=== PATIENT | male | born 1950 | race Caucasian/White ===

== ENCOUNTER 2016-11-14 22:31 | Inpatient (IN) ==
[2016-11-14] MEDS ORDERED: 0.9 % Sodium Chloride 1,000 ML ONE (22:42)
[2016-11-14] MEDS ORDERED: 0.9 % Sodium Chloride 1,000 ML IVC ONE ×2 (22:54→23:47)
[2016-11-14 23:04] LABS: Basophils % 0.2 %; Eosinophils # 0.1 K/mcL (0.0-0.6); Eosinophils % 1.1 %; Hematocrit 30.6 % (37.5-50.1); Hemoglobin 10.2 g/dL (12.9-16.9); Immature Granulocytes % 0.6 % (0-4); Lymphocytes # 1.8 K/mcL (0.6-4.6); Lymphocytes % 13.6 %; Mean Corpuscular HGB Conc 33.3 g/dL (31.6-35.5); Mean Corpuscular Hemoglobin 31.1 pg (28.0-33.3); Mean Corpuscular Volume 93.3 fL (83.0-100.0); Monocytes # 0.8 K/mcL (0.0-1.3); Monocytes % 6.3 %; Neutrophils # 10.1 K/mcL (1.6-8.9); Platelet Count 235 K/mcL (140-400); Red Blood Count 3.28 M/mcL (4.19-5.50); Segmented Neutrophils % 78.2 %
[2016-11-14 23:20] LABS: Alanine Aminotransferase 13 Units/L (0-55); Albumin 2.9 g/dL (3.5-5.0); Albumin/Globulin Ratio 1.2 (1.1-2.2); Alkaline Phosphatase 45 Units/L (38-126); Aspartate Amino Transferase 8 Units/L (5-34); BUN/Creatinine Ratio 82 (6-26); Bilirubin,Total 0.8 mg/dL (0.2-1.2); Blood Urea Nitrogen 89 mg/dL (8-26); Calcium 8.3 mg/dL (8.6-10.8); Carbon Dioxide 18 mEq/L (19-29); Chloride 112 mEq/L (98-109); Globulin 2.4 g/dL (2.4-3.5); Glucose 104 mg/dL (70-99); Osmolality,Calculated 320 (280-300); Potassium 4.2 mEq/L (3.5-4.5); Sodium 141 mEq/L (136-145); Total Protein 5.3 g/dL (6.0-8.3); eGFR For African Americans > 60 (> 60); eGFR For Non-African Americans > 60 (> 60)
[2016-11-14 23:23] LABS: INR 1.3; Prothrombin Time 13.7 Seconds (9.4-12.1)
[2016-11-14 23:25] LABS: Activated Partial Thrombo Time 23.1 Seconds (26.0-36.0)
--- NOTE | 2016-11-15 00:14 | Emergency Department Note ---
Disposition Clinical Impression: Dehydration Disposition: Admitted As Inpatient Referrals: Lydia Slater CNP [Primary Care Provider] - Forms: ED Satisfaction Letter Dizziness HPI - General Chief Complaint: ED Dizziness Stated Complaint: Dizzy Time Seen by Provider: 11/14/16 22:52 Source: patient Nursing Notes Reviewed: Yes Vital Signs Reviewed: Yes - History of Present Illness HPI Narrative: Patient presents for complaint of feeling ill dizziness started earlier today. Patient denies chest pain or shortness of breath associated with this. Patient denies any vision changes associated with this. Patient noted he started to feel hot and sweaty [employer] garage. Patient denies numbness and tinglin chills. patient - Related Data Home Medications Medication Instructions Recorded Confirmed Amlodipine Besylate 5 mg PO ONCE 11/15/16 11/15/16 Aspirin [Lo-Dose Aspirin EC] 81 mg PO ONCE 11/15/16 11/15/16 Clopidogrel [Plavix] 75 mg PO DAILY 11/15/16 11/15/16 Loratadine [Allergy Relief] 10 mg PO ONCE 11/15/16 11/15/16 Metoprolol [Lopressor] 25 mg PO BID 11/15/16 11/15/16 Nitroglycerin [Nitrostat] 0.4 mg SL PRN 11/15/16 Simvastatin [Zocor] 80 mg PO ONCE 11/15/16 11/15/16 Previous Rx's Medication Instructions Recorded Tamsulosin HCl [Flomax] 0.4 mg PO DAILY #14 cap.er.24h 11/05/16 Allergies Allergy/AdvReac Type Severity Reaction Status Date / Time No Known Allergies Allergy Verified 11/14/16 22:32 All systems ED: reviewed and negative except as stated. Past Medical History - Past Medical History Source: patient Medical history: Reports: hypertension, myocardial infarction Psychiatric history: Reports: no psych history - Social History Smoking Status: Never smoker Smokeless Tobacco Status: No Alcohol use: Reports: none Drug use: Reports: none Physical Exam - General Limitations: no limitations General appearance: alert, in no apparent distress - Head Head exam: atraumatic, normocephalic, normal inspection - Eye Eye exam: Present: normal appearance, PERRL, EOMI - ENT ENT exam: normal exam, normal oropharynx, mucous membranes moist - Neck Neck exam: Present: normal inspection, full ROM, trachea midline - Chest Chest inspection: Present: normal inspection, symmetric chest wall rise - Respiratory Respiratory exam: Present: normal lung sounds bilaterally - Cardiovascular Cardiovascular exam: Present: regular rate, normal rhythm, normal heart sounds - Abdominal Exam Abdominal exam: Present: soft, Non-Tender. Absent: tenderness, distention, guarding, rebound, rigidity - Extremities Exam Extremities exam: Present: normal inspection, full ROM. Absent: tenderness, pedal edema - Back Exam Back exam: Present: normal inspection, full ROM. Absent: tenderness - Neurological Exam Neurological exam: Present: alert, oriented X3 - Psychiatric Psychiatric exam: Present: normal affect, normal mood - Skin Skin exam: Present: warm, dry, intact, normal color Course Vital Signs Pulse Rate 99 11/14/16 22:38 Blood Pressure 82/69 11/14/16 22:38 Temperature 97.9 F 11/14/16 22:43 Pulse Rate 101 11/15/16 00:23 Respiratory Rate 16 11/15/16 00:23 Blood Pressure 114/85 11/15/16 00:23 O2 Sat by Pulse Oximetry 99 11/15/16 00:23 Oxygen Delivery Oxygen Delivery Room Air Dizziness - Differential Diagnosis Likely: orthostatic hypotension, cerebrovascular accident, cerebellar infarct, other occult medical condition - Lab Data Lab results reviewed: Yes I reviewed the patient's lab results. Result diagrams: 11/14/16 10:55 11/14/16 10:55 Lab Results 11/14/16 11/14/16 11/14/16 Range/Units 10:55 10:55 10:55 WBC 13.0 H (4.3-11.1) K/mcL RBC 3.28 L (4.19-5.50) M/mcL Hgb 10.2 L (12.9-16.9) g/dL Hct 30.6 L (37.5-50.1) % MCV 93.3 (83.0-100.0) fL MCH 31.1 (28.0-33.3) pg MCHC 33.3 (31.6-35.5) g/dL RDW 13.0 (11.5-14.5) % Plt Count 235 (140-400) K/mcL MPV 9.0 L (9.4-12.4) fL Immature Gran % 0.6 (0-4) % Seg Neutrophils % 78.2 % Lymphocytes % 13.6 % Monocytes % 6.3 % Eosinophils % 1.1 % Basophils % 0.2 % Neutrophils # 10.1 H (1.6-8.9) K/mcL Lymphocytes # 1.8 (0.6-4.6) K/mcL Monocytes # 0.8 (0.0-1.3) K/mcL Eosinophils # 0.1 (0.0-0.6) K/mcL Basophils # 0.0 (0.0-0.2) K/mcL PT 13.7 H (9.4-12.1) Seconds INR 1.3 APTT 23.1 L (26.0-36.0) Seconds Sodium 141 (136-145) mEq/L Potassium 4.2 (3.5-4.5) mEq/L Chloride 112 H (98-109) mEq/L Carbon Dioxide 18 L (19-29) mEq/L BUN 89 H (8-26) mg/dL Creatinine 1.08 (0.72-1.25) mg/dL Est GFR ( Amer) > 60 (> 60) Est GFR (Non-Af Amer) > 60 (> 60) BUN/Creatinine Ratio 82 H (6-26) Glucose 104 H (70-99) mg/dL Calculated Osmolality 320 H (280-300) Lactic Acid (0.5-2.2) mmol/L Calcium 8.3 L (8.6-10.8) mg/dL Total Bilirubin 0.8 (0.2-1.2) mg/dL AST 8 (5-34) Units/L ALT 13 (0-55) Units/L Alkaline Phosphatase 45 (38-126) Units/L Troponin I (0-0.03) ng/mL Serum Total Protein 5.3 L (6.0-8.3) g/dL Albumin 2.9 L (3.5-5.0) g/dL Globulin 2.4 (2.4-3.5) g/dL Albumin/Globulin Ratio 1.2 (1.1-2.2) Urine Color (Yellow) Urine Clarity (Clear) Urine pH (5.0-8.0) pH Units Ur Specific [place] (1.010-1.025) Urine Protein (Neg-Trace) mg/dL Urine Glucose (UA) (Normal) mg/dL Urine Ketones (Negative) mg/dL Urine Blood (Negative) Urine Nitrite (Negative) Urine Bilirubin (Negative) Urine Urobilinogen (Normal) mg/dL Ur Leukocyte Esterase (Negative) Ur Culture Indicated? (NO) 11/14/16 11/14/16 11/14/16 Range/Units 10:55 23:58 Unknown WBC (4.3-11.1) K/mcL RBC (4.19-5.50) M/mcL Hgb (12.9-16.9) g/dL Hct (37.5-50.1) % MCV (83.0-100.0) fL MCH (28.0-33.3) pg MCHC (31.6-35.5) g/dL RDW (11.5-14.5) % Plt Count (140-400) K/mcL MPV (9.4-12.4) fL Immature Gran % (0-4) % Seg Neutrophils % % Lymphocytes % % Monocytes % % Eosinophils % % Basophils % % Neutrophils # (1.6-8.9) K/mcL Lymphocytes # (0.6-4.6) K/mcL Monocytes # (0.0-1.3) K/mcL Eosinophils # (0.0-0.6) K/mcL Basophils # (0.0-0.2) K/mcL PT (9.4-12.1) Seconds INR APTT (26.0-36.0) Seconds Sodium (136-145) mEq/L Potassium (3.5-4.5) mEq/L Chloride (98-109) mEq/L Carbon Dioxide (19-29) mEq/L BUN (8-26) mg/dL Creatinine (0.72-1.25) mg/dL Est GFR ( Amer) (> 60) Est GFR (Non-Af Amer) (> 60) BUN/Creatinine Ratio (6-26) Glucose (70-99) mg/dL Calculated Osmolality (280-300) Lactic Acid 1.7 (0.5-2.2) mmol/L Calcium (8.6-10.8) mg/dL Total Bilirubin (0.2-1.2) mg/dL AST (5-34) Units/L ALT (0-55) Units/L Alkaline Phosphatase (38-126) Units/L Troponin I 0.01 (0-0.03) ng/mL Serum Total Protein (6.0-8.3) g/dL Albumin (3.5-5.0) g/dL Globulin (2.4-3.5) g/dL Albumin/Globulin Ratio (1.1-2.2) Urine Color Yellow (Yellow) Urine Clarity Clear (Clear) Urine pH 5.5 (5.0-8.0) pH Units Ur Specific [place] 1.024 (1.010-1.025) Urine Protein Negative (Neg-Trace) mg/dL Urine Glucose (UA) Normal (Normal) mg/dL Urine Ketones 15 H (Negative) mg/dL Urine Blood Negative (Negative) Urine Nitrite Negative (Negative) Urine Bilirubin Negative (Negative) Urine Urobilinogen Normal (Normal) mg/dL Ur Leukocyte Esterase Negative (Negative) Ur Culture Indicated? NO (NO) - Radiology Data Radiology results reviewed: Yes I reviewed the patient's radiology results. - EKG Data EKG attestation: Yes I reviewed and interpreted this EKG. EKG shows normal: sinus rhythm Rate: normal Rhythm: NSR Critical Care Time Total Critical Care Time: 30 Attestation: Critical care performed: Time is exclusive of separately billable procedures. Time includes: direct patient care, patient reassessment, coordination of patient care, interpretation of data (laboratory data, radiology data, and respiratory data), review of patient's medical records, medical consultation and documentation of patient care. Procedures included in critical care time: Procedures excluded from critical care time:
[2016-11-15 00:19] LABS: Bilirubin,Urine Negative (Negative); Blood,Urine Negative (Negative); Clarity,Urine Clear (Clear); Color,Urine Yellow (Yellow); Glucose,Urine (UA) Normal (Normal); Ketones,Urine 15 mg/dL (Negative); Leukocyte Esterase,Urine Negative (Negative); Nitrite,Urine Negative (Negative); PH,Urine 5.5 pH Units (5.0-8.0); Protein,Urine Negative (Neg-Trace); Specific Gravity,Urine 1.024 (1.010-1.025); Urobilinogen,Urine Normal (Normal)
[2016-11-15] MEDS ORDERED: 0.9 % Sodium Chloride 1,000 ML IVC ONE (00:26)
[2016-11-15] MEDS ORDERED: Ondansetron 4 MG/2 ML VIAL IVP PRN (03:02)
[2016-11-15] MEDS ORDERED: Naloxone 0.4 MG/ML INJ IVP PRN (03:02)
--- NOTE | 2016-11-15 03:08 | Internal Med History&Physical ---
Date of Encounter: 11/15/16 Time of Encounter: 03:07 Assessment and Plan (1) Upper GI bleed Current visit: Yes Status: Acute Possibly aspirin/ NSAID induced gastritis versus duodenitis / peptic ulcer disease. Patient is on combination of aspirin, clopidogrel, ibuprofen, glucocorticoid. We will hold all his medications. Start on pantoprazole intravenously. NPO for now. GI consultation, possible upper GI endoscopy. Monitor H&H, and may need PRBC transfusion (2) Gastrointestinal hemorrhage with melena Current visit: Yes Status: Acute Possibly aspirin/ NSAID induced gastritis versus duodenitis / peptic ulcer disease. Patient is on combination of aspirin, clopidogrel, ibuprofen, glucocorticoid. We will hold all his medications. Start on pantoprazole intravenously. NPO for now. GI consultation, possible upper GI endoscopy. Monitor H&H, and may need PRBC transfusion (3) Orthostatic hypotension Current visit: Yes Status: Acute Possibly due to upper GI bleed. Patient is receiving IV fluids. If there is any significant drop in hemoglobin PRBC transfusion. (4) Syncope Current visit: Yes Status: Acute Possibly due to upper GI bleed. Patient is receiving IV fluids. If there is any significant drop in hemoglobin PRBC transfusion. Qualifiers: Syncope type: vasovagal syncope Qualified Code(s): R55 - Syncope and collapse (5) CAD (coronary artery disease) Current visit: Yes Status: Chronic Hold Aspirin and clopidogrel due to upper GI bleed Qualifiers: Coronary Disease-Associated Artery/Lesion type: ruby artery [place] vs. transplanted heart: ruby heart Associated angina: without angina Qualified Code(s): I25.10 - Atherosclerotic heart disease of ruby coronary artery without angina pectoris (6) Hypertension Current visit: Yes Status: Chronic Hold antiHypertensive medications due to orthostatic hypotension Qualifiers: Hypertension type: essential hypertension Qualified Code(s): I10 - Essential (primary) hypertension (7) BPH (benign prostatic hyperplasia) Current visit: Yes Status: Chronic Continue tamsulosin Qualifiers: Prostatic enlargement morphology: unspecified morphology Lower urinary tract symptom presence: symptoms present Qualified Code(s): N40.1 - Benign prostatic hyperplasia with lower urinary tract symptoms Internal Medicine - H&P: HPI Chief complaint: Fall at home Admitted From: Emergency Dept Plans for Post Hospital Care: Home History of present illness: Mr. Skinner is a 66 year old male with past medical history significant for hypertension, CAD / NV in 2006 s/p stent placement (taking aspirin and clopidogrel). He recently had low back pain/sciatica - and apparently was started on the steroids and ibuprofen. He also had diabetes and urinary retention, which required Monroe catheter placement and been successfully void without catheter now. He was in his usual state of health until yesterday. When he woke up to get to work, he felt dizzy and fell down. Denies loss of consciousness or seizure activity. When he was waiting for the EMS squad, he was sitting outside the garage and felt dizzy when he tried to stand up. Apparently his blood pressure was very low with systolic blood pressure in the 80s. He was eating and drinking well and denied nausea, vomiting, fever, chills , cough, expectation, chest pain, dysuria, hematuria. He was evaluated in the emergency department to have orthostatic hypotension. His BUN was elevated. His EKG, urinalysis, chest x-ray were negative. He is admitted to the hospitalist service for further workup and management. Patient had an episode of black stool, in the room which I have seen and is melanotic. No hematochezia. He denies abdominal pain. Past Med Surg Social Fam HX - Past Medical History Medical history: hypertension, myocardial infarction Psychiatric history: no psych history - Social History Smoking Status: Never smoker Smokeless Tobacco Status: No Alcohol use: none Drug use: none - Family History Mother Living Status: Age at : 83 Cause of : Heart failure Hx Family Cardiac Disorders: Yes (CHF, HTN) Hx Family Respiratory Disorders: No Hx Family Cancer: No Hx Family GI Disorders: No Hx Family Genitourinary Disorders: No Hx Family Endocrine Disorder: No Hx Family Musculoskeletal Disorders: No Hx Family Neuromuscular Disorders: No Hx Family Neurologic Disorders: No Hx Family HEENT Disorders: No Hx Family Autoimmune Disorders: No Hx Family Reproductive Disorders: No Hx Family Psychosocial Disorders: No Hx Family Medical Disorders: No Father Living Status: Age at : 83 Cause of : Parkinsons Hx Family Cardiac Disorders: No Hx Family Respiratory Disorders: No Hx Family Cancer: No Hx Family GI Disorders: No Hx Family Genitourinary Disorders: No Hx Family Endocrine Disorder: No Hx Family Musculoskeletal Disorders: No Hx Family Neuromuscular Disorders: Yes Hx Family Neurologic Disorders: No Hx Family HEENT Disorders: No Hx Family Autoimmune Disorders: No Hx Family Reproductive Disorders: No Hx Family Psychosocial Disorders: No Hx Family Medical Disorders: No Internal Medicine - H&P: Meds Tamsulosin HCl [Flomax] 0.4 mg PO DAILY #14 cap.er.24h 11/05/16 [Rx] Amlodipine Besylate 5 mg PO ONCE 11/15/16 [History] Aspirin [Lo-Dose Aspirin EC] 81 mg PO ONCE 11/15/16 [History] Clopidogrel [Plavix] 75 mg PO DAILY 11/15/16 [History] Loratadine [Allergy Relief] 10 mg PO ONCE 11/15/16 [History] Metoprolol [Lopressor] 25 mg PO BID 11/15/16 [History] Nitroglycerin [Nitrostat] 0.4 mg SL PRN 11/15/16 [History] Simvastatin [Zocor] 80 mg PO ONCE 11/15/16 [History] Allergies No Known Allergies Allergy (Verified 11/14/16 22:32) All Systems PM: A 10-system review of systems was performed and is negative for pertinent findings except as documented above in the HPI. - Constitutional Vitals: Temp Pulse Resp BP Pulse Ox 98.1 F 105 16 119/72 98 11/15/16 01:33 11/15/16 01:33 11/15/16 01:33 11/15/16 01:33 11/15/16 01:33 Exam: General: Not in acute distress at the time of my evaluation HEENT: Oral mucosa is moist. No conjunctival palor or scleral icterus Neck: No obvious neck swellings Lungs: Clear to auscultation Cardiac: Regular rate and rhythm. No significant murmurs Abdomen: Soft, non tender. Bowel sounds present Genitourinary: No monroe catheter Neurological: Alert and oriented. No gross localizing deficits Psych: Not aggressive or agitated Extremities: no significant leg edema Skin: No generalized rash Internal Med - H&P Results - Labs CBC & Chem 7: 11/14/16 10:55 11/14/16 10:55 - EKG Data -: EKG Interpreted by Myself EKG shows normal: sinus rhythm - EKG Data EKG comments: Q waves in III, AVF 11/15/16 05:00 - Impressions ITS Impressions Chest X-Ray 11/14/16 22:53 IMPRESSION: No acute cardiopulmonary abnormality. D/ / Tony Osborn MD / Tony Osborn MD Interpreting Provider: Tony Osborn MD - VTE Reasons for not Prescribing Prophylaxis: Treatment not Indicated - Low risk for VTE
[2016-11-15] MEDS: Pantoprazole 40 MG VIAL IVP SCH ×2 (03:59→16:49)
[2016-11-15 05:36] LABS: Eosinophils # 0.1 K/mcL (0.0-0.6); Eosinophils % 0.8 %; Hematocrit 26.7 % (37.5-50.1); Hemoglobin 8.9 g/dL (12.9-16.9); Immature Granulocytes % 0.7 % (0-4); Lymphocytes # 1.7 K/mcL (0.6-4.6); Lymphocytes % 24.3 %; Mean Corpuscular HGB Conc 33.3 g/dL (31.6-35.5); Mean Corpuscular Hemoglobin 30.8 pg (28.0-33.3); Mean Corpuscular Volume 92.4 fL (83.0-100.0); Mean Platelet Volume 9.7 fL (9.4-12.4); Monocytes # 0.5 K/mcL (0.0-1.3); Monocytes % 7.6 %; Neutrophils # 4.7 K/mcL (1.6-8.9); Platelet Count 209 K/mcL (140-400); Red Blood Count 2.89 M/mcL (4.19-5.50); Red Cell Distribution Width 13.1 % (11.5-14.5); Segmented Neutrophils % 66.6 %
[2016-11-15 06:05] LABS: BUN/Creatinine Ratio 88 (6-26); Blood Urea Nitrogen 76 mg/dL (8-26); Calcium 7.7 mg/dL (8.6-10.8); Carbon Dioxide 16 mEq/L (19-29); Chloride 117 mEq/L (98-109); Glucose 107 mg/dL (70-99); Magnesium 1.7 mg/dL (1.6-2.6); Osmolality,Calculated 315 (280-300); Sodium 141 mEq/L (136-145); eGFR For African Americans > 60 (> 60); eGFR For Non-African Americans > 60 (> 60)
[2016-11-15 09:07] LABS: Hemoglobin 8.5 g/dL (12.9-16.9)
[2016-11-15] MEDS: *HR* Morphine 2 MG/ML SYRINGE IVP PRN ×2 (10:17→16:49)
[2016-11-15] MEDS: D5% in 0.45% NACL 1,000 ML IVC SCH ×2 (10:17→20:07)
--- NOTE | 2016-11-15 11:23 | Event Note ---
Date of Encounter: 11/15/16 Time of Encounter: 10:30 Patient is doing better today. He has not had any further episodes of melena or diarrhea. Has remained nothing by mouth. Denies any hematemesis or hemoptysis. Gastroenterology has been consulted.
[2016-11-15] MEDS ORDERED: Nitroglycerin 0.4 MG TAB.SUBL SL PRN (13:12)
[2016-11-15] MEDS: traMADol 50 MG TABLET PO PRN ×2 (14:46→21:32)
[2016-11-15 14:52] LABS: Hematocrit 24.9 % (37.5-50.1); Hemoglobin 8.3 g/dL (12.9-16.9)
--- NOTE | 2016-11-15 19:08 | Electrocardiograph Report ---
[place] [id number] Test Date: 2016-11-14 Pat Name: Glenn Skinner Department: 103 Room: 3B46 Gender: M Presales Senior Specialist: RICHI : 1950 Requested By: Lawrence Matthew Order Number: [id number] Reading MD: Kayla Jackman Measurements Intervals [place] Rate: 99 P: 11 ID: [id number] QRS: -18 QRSD: 93 T: 2 QT: 352 QTc: 408 Interpretive Statements SINUS RHYTHM LOW QRS VOLTAGE IN PRECORDIAL LEADS INFERIOR MYOCARDIAL INFARCTION, PROBABLY OLD Electronically Signed On 11-15-2016 19:06:58 EDT by Kayla Jackman
[2016-11-15 21:04] LABS: Hematocrit 22.6 % (37.5-50.1); Hemoglobin 7.6 g/dL (12.9-16.9)
[2016-11-16] MEDS: *HR* Morphine 2 MG/ML SYRINGE IVP PRN ×4 (03:48→20:21)
[2016-11-16] MEDS: D5% in 0.45% NACL 1,000 ML IVC SCH ×3 (05:48→23:59)
[2016-11-16] MEDS: Pantoprazole 40 MG VIAL IVP SCH ×2 (05:48→17:15)
[2016-11-16] MEDS: amLODIPine 5 MG TABLET PO SCH (07:46)
[2016-11-16] MEDS: Metoprolol XL (24 HR) Succ 50 MG TAB.ER.24H PO SCH (07:46)
--- NOTE | 2016-11-16 09:04 | Gastroenterology Consult Note ---
<Jena Messina - Last Filed: 11/16/16 11:55> Date of Encounter: 11/16/16 Time of Encounter: 11:20 - Assessment and plan (1) Gastrointestinal hemorrhage with melena Current Visit: Yes Status: Acute Assessment and plan: w/anemia. Recent use of NSAIDs and steroids. on PLAVIX. EGD evaluation today to r/o esophagitis, gastritis, duodenitis, PUD, MW tear, tumor, polyp, AVM. Monitor h&h, transfuse as appropriate. - Time Spent With Patient Total time spent is greater than 50% in coordination of care (as documented) at patient's floor/unit and/or counseling patient: less than 15 minutes GI History of Present Illness - Data of Consult Patient: new to practice Consult date: 11/16/16 Requesting Physician: Jose Valerio MD - Consult Narrative Reason for consult: Melena, anemia History of present illness: Mr. Skinner is a 66 year old male with PMH of HTN, CAD/NE with stent in 2005, DM , urinary retention. Recent hx of low back pain for which he received steroid and NSAID therapy. Patient presented with complaint of syncope and fall on . He was evaluated by EMS and found to have a low blood pressure, transported to the ER for further workup. Hgb was low at time of admission at 10.2, fell to current low of 7.6, patient is receiving one unit PRBC. INR 1.3. He is on long-term anticoagulation with PLAVIX. His BUN was elevated. His EKG , urinalysis, chest x-ray were negative. He did have at least 3 episodes of melena. Denies any UGI symptoms. Typically, patient moves his bowels daily x 1, brown stools, no family hx of colon cancer. Last Cscope was normal per the patient at age 54 years. Colonoscopy: Age 54, normal per patient EGD: Unk Past Med Surg Social Fam HX - Past Medical History Medical history: hypertension, myocardial infarction Psychiatric history: no psych history - Social History Smoking Status: Never smoker Smokeless Tobacco Status: No Alcohol use: none Drug use: none - Family History Mother Living Status: Age at : 83 Cause of : Heart failure Hx Family Cardiac Disorders: Yes (CHF, HTN) Hx Family Respiratory Disorders: No Hx Family Cancer: No Hx Family GI Disorders: No Hx Family Genitourinary Disorders: No Hx Family Endocrine Disorder: No Hx Family Musculoskeletal Disorders: No Hx Family Neuromuscular Disorders: No Hx Family Neurologic Disorders: No Hx Family HEENT Disorders: No Hx Family Autoimmune Disorders: No Hx Family Reproductive Disorders: No Hx Family Psychosocial Disorders: No Hx Family Medical Disorders: No Father Living Status: Age at : 83 Cause of : Parkinsons Hx Family Cardiac Disorders: No Hx Family Respiratory Disorders: No Hx Family Cancer: No Hx Family GI Disorders: No Hx Family Genitourinary Disorders: No Hx Family Endocrine Disorder: No Hx Family Musculoskeletal Disorders: No Hx Family Neuromuscular Disorders: Yes Hx Family Neurologic Disorders: No Hx Family HEENT Disorders: No Hx Family Autoimmune Disorders: No Hx Family Reproductive Disorders: No Hx Family Psychosocial Disorders: No Hx Family Medical Disorders: No - Gastrointestinal NSAID use: Yes Anticoagulation Use: PLAVIX Number of BM Per Day: daily Gastrointestinal: Present: melena - Constitutional Constitutional: fatigue - EENT Eyes: as per HPI Ears: Present: as per HPI Nose, mouth and throat: Present: as per HPI - Cardiovascular Cardiovascular ROS: Present: as per HPI - Respiratory Respiratory IM: Present: as per HPI - Genitourinary Genitourinary: Present: Urinary frequency - Neurological ROS Neurological GI: Present: dizziness, weakness - Hematologic/Lymphatic Hematologic/Lymphatic pediatric: Present: as per HPI - Musculoskeletal Musculoskeletal ROS GI: Present: as per HPI - Integumentary Integumentary GI: Present: as per HPI - Psychiatric ROS Psychiatric GI: Present: as per HPI - Endocrine Endocrine IM: Present: as per HPI - Constitutional Vitals: Temp Pulse Resp BP Pulse Ox 98.0 F 96 16 111/69 96 11/16/16 07:28 11/16/16 07:28 11/16/16 07:28 11/16/16 07:28 11/16/16 07:28 General appearance: Present: cooperative, A&O X 3, no acute distress, answers questions appropriately - Head Head exam: Present: atraumatic, normocephalic - Eye Eye exam: Present: normal appearance, sclera anicteric - ENT ENT exam: Present: mucous membranes moist - Neck Neck exam general surgery: Present: normal inspection, trachea midline - Respiratory Respiratory exam: Present: CTAB - Cardiovascular Cardiovascular exam: Present: RRR, +S1, +S2 - GI/Abdominal GI/Abdominal exam: Present: normal bowel sounds, soft, no peritoneal signs - Rectal Rectal exam: Present: deferred - Extremities Exam Extremities exam: Present: warm - Neurological Exam Neurological exam: Present: no focal deficits - Psychiatric Psychiatric exam: Present: normal affect, normal mood - Skin Skin exam: Present: dry, intact, normal color, warm Results - Labs CBC & Chem 7: 11/15/16 20:51 11/15/16 04:31 Labs: Last Result Calcium 7.7 mg/dL (8.6-10.8) L 11/15/16 04:31 Troponin I 0.01 ng/mL (0-0.03) 11/14/16 10:55 Stool Occult Blood Positive (Negative) A 11/15/16 03:45 Entire Visit Hgb 7.6 g/dL (12.9-16.9) L 11/15/16 20:51 Hct 22.6 % (37.5-50.1) L 11/15/16 20:51 PT 13.7 Seconds (9.4-12.1) H 11/14/16 10:55 Total Bilirubin 0.8 mg/dL (0.2-1.2) 11/14/16 10:55 AST 8 Units/L (5-34) 11/14/16 10:55 ALT 13 Units/L (0-55) 11/14/16 10:55 - ABG ABG results: PT/INR, D-dimer PT 13.7 Seconds (9.4-12.1) H 11/14/16 10:55 Consult Discharge Plan - Plan Referrals: Lydia Slater, [employer]MER [Primary Care Provider] - <Jesús Carreno - Last Filed: 11/16/16 16:14> Date of Encounter: 11/16/16 Time of Encounter: 15:00 - Time Spent With Patient Total time spent is greater than 50% in coordination of care (as documented) at patient's floor/unit and/or counseling patient: GI History of Present Illness - Data of Consult Requesting Physician: Jose Valerio MD - Consult Narrative History of present illness: Mr. Skinner is a 66 year old male - Constitutional Vitals: Temp Pulse Resp BP Pulse Ox 98.1 F 95 16 132/79 96 11/16/16 14:53 11/16/16 16:00 11/16/16 16:00 11/16/16 16:00 11/16/16 16:00 Results - Labs CBC & Chem 7: 11/16/16 13:19 11/15/16 04:31 Labs: Last Result Calcium 7.7 mg/dL (8.6-10.8) L 11/15/16 04:31 Troponin I 0.01 ng/mL (0-0.03) 11/14/16 10:55 Stool Occult Blood Positive (Negative) A 11/15/16 03:45 Entire Visit Hgb 8.1 g/dL (12.9-16.9) L 11/16/16 13:19 Hct 24.3 % (37.5-50.1) L 11/16/16 13:19 PT 13.7 Seconds (9.4-12.1) H 11/14/16 10:55 Total Bilirubin 0.8 mg/dL (0.2-1.2) 11/14/16 10:55 AST 8 Units/L (5-34) 11/14/16 10:55 ALT 13 Units/L (0-55) 11/14/16 10:55 - ABG ABG results: PT/INR, D-dimer PT 13.7 Seconds (9.4-12.1) H 11/14/16 10:55 - Attending Attestation I examined this patient and my medical decision-making was reviewed with the [employer]/PA/Advanced Practice Nurse/Resident Physician. I agree with the documented findings, disposition and treatment plan as described except to the extent set forth below. Pt with anemia/melena; EGD today
[2016-11-16] MEDS ORDERED: 0.9 % Sodium Chloride 250 ML ONE (09:12)
[2016-11-16 13:45] LABS: Hematocrit 24.3 % (37.5-50.1); Hemoglobin 8.1 g/dL (12.9-16.9); Mean Corpuscular HGB Conc 33.3 g/dL (31.6-35.5); Mean Corpuscular Volume 93.1 fL (83.0-100.0); Mean Platelet Volume 9.7 fL (9.4-12.4); Platelet Count 176 K/mcL (140-400); Red Blood Count 2.61 M/mcL (4.19-5.50); Red Cell Distribution Width 13.2 % (11.5-14.5)
--- NOTE | 2016-11-16 13:55 | Internal Med Progress Note ---
Date of Encounter: 11/16/16 Time of Encounter: 10:45 - Assessment and plan (1) Gastrointestinal hemorrhage with melena Current Visit: Yes Status: Acute Assessment and plan: Hemoglobin 7.6 last night. This morning is 8.1. Given the significant drop in hemoglobin since patient's admission, will transfuse 1 unit packed red blood cells. Continue IV Protonix. GI has been consulted. Plan for upper GI endoscopy today. (2) Orthostatic hypotension Current Visit: Yes Status: Acute Assessment and plan: Due to GI bleed. Improving clinically. (3) Syncope Current Visit: Yes Status: Acute Assessment and plan: Due to orthostasis. No further episodes of syncope Qualifiers: Syncope type: vasovagal syncope Qualified Code(s): R55 - Syncope and collapse (4) CAD (coronary artery disease) Current Visit: Yes Status: Chronic Assessment and plan: Holding aspirin and Plavix due to GI bleed. No chest pain reported at this time. Qualifiers: Coronary Disease-Associated Artery/Lesion type: [place] artery [place] vs. transplanted heart: [place] heart Associated angina: without angina Qualified Code(s): I25.10 - Atherosclerotic heart disease of [place] coronary artery without angina pectoris (5) Hypertension Current Visit: Yes Status: Chronic Assessment and plan: Blood pressure is well controlled. Qualifiers: Hypertension type: essential hypertension Qualified Code(s): I10 - Essential (primary) hypertension (6) BPH (benign prostatic hyperplasia) Current Visit: Yes Status: Chronic Assessment and plan: Continue Flomax Qualifiers: Prostatic enlargement morphology: unspecified morphology Lower urinary tract symptom presence: symptoms present Qualified Code(s): N40.1 - Benign prostatic hyperplasia with lower urinary tract symptoms - Subjective Interval history: Denies any abdominal pain. No new episodes of melena or diarrhea. Patient has not had a bowel movement recently. Complains of right lower extremity sciatica related pain. - Constitutional Vitals: Temp Pulse Resp BP Pulse Ox 98.2 F 93 16 110/67 97 11/16/16 11:30 11/16/16 11:30 11/16/16 11:30 11/16/16 11:30 11/16/16 11:30 General appearance: Present: cooperative, A&O X 3, no acute distress, answers questions appropriately - Neck Neck exam general surgery: Present: supple, trachea midline. Absent: lymphadenopathy - Respiratory Respiratory exam: Present: CTAB. Absent: accessory muscle use, rales, rhonchi, wheezes - Cardiovascular Cardiovascular exam: Present: RRR, +S1, +S2. Absent: diastolic murmur, gallop, rubs, systolic murmur - GI/Abdominal GI/Abdominal exam: Present: normal bowel sounds, soft, no peritoneal signs. Absent: distended, tenderness - Extremities Exam Extremities exam: Present: warm, radial pulses palpable and symetrical. Absent : calf tenderness, cyanotic, pedal edema - Neurological Exam Neurological exam: Present: CN II-XII intact, oriented X3, no focal deficits. Absent: facial droop, speech deficit - Skin Skin exam: Present: dry, intact, pallor Internal Medicine: Result - Labs CBC & Chem 7: 11/16/16 13:19 11/15/16 04:31 Labs: Short CBC 11/15/16 11/15/16 11/16/16 Range/Units 14:45 20:51 13:19 WBC 8.2 (4.3-11.1) K/mcL Hgb 8.3 L 7.6 L 8.1 L (12.9-16.9) g/dL Hct 24.9 L 22.6 L 24.3 L (37.5-50.1) % Plt Count 176 (140-400) K/mcL - ABG Interpretation ABG results: PT/INR, D-dimer PT 13.7 Seconds (9.4-12.1) H 11/14/16 10:55 - VTE Reasons for not Prescribing Prophylaxis: Treatment not Indicated - Low risk for VTE Consult Discharge Plan - Plan Referrals: Lydia Slater, AERONAUTICAL INSPECTOR [Primary Care Provider] - - Attending Attestation This document has been at least partially created by [employer] recognition technology by Dr. Valerio. Errors in grammar, wording or other phrases may exist. If errors are found after the documentation is signed, they will be addressed individually in the addendum section of this document when appropriate.
[2016-11-16] MEDS ORDERED: *HR* Midazolam HCl 5 MG/5 ML VIAL IVP ONE (16:02)
[2016-11-16] MEDS ORDERED: *HR* FentaNYL (PF) 100 MCG/2 ML VIAL ONE (16:03)
[2016-11-16] MEDS ORDERED: Simethicone 40 MG/0.6 ML MLS IR ONE (16:13)
[2016-11-16] MEDS ORDERED: Tetracaine/Benzocaine/Butamben 200MG/SPRAY (100SPY/BOT) MM ONE (16:13)
[2016-11-16] MEDS: *HR* FentaNYL (PF) 100 MCG/2 ML VIAL IVP PRN ×2 (16:14→16:15)
[2016-11-16] MEDS: *HR* Midazolam HCl 5 MG/5 ML VIAL IVP PRN ×2 (16:14→16:18)
--- NOTE | 2016-11-16 16:15 | Pre-Sedation Evaluation ---
Pre-sedation evaluation - Pre-sedation checklist Date of procedure: 11/16/16 Procedure: EGD Recent Vitals: Last Vital Signs Temp 98.1 F 11/16/16 14:53 Pulse 95 11/16/16 16:00 Resp 16 11/16/16 16:00 BP 132/79 11/16/16 16:00 Pulse Ox 96 11/16/16 16:00 H&P (including ROS) documented in medical record: Yes Previous reaction to sedatives/anesthetics: No Dietary Status: NPO after Midnight Dentition: No loose teeth or bridges, dentures removed ASA Classification *see protocol: CLASS III-Severe systemic disease Plan of Care: Pt appropriate candidate for procedure/moderate/conscious sedation , Risks/benefits of procedure/sedation discussed w/ patient/family
[2016-11-16] MEDS: traMADol 50 MG TABLET PO PRN (17:15)
[2016-11-17] MEDS: *HR* Morphine 2 MG/ML SYRINGE IVP PRN ×5 (00:32→20:04)
[2016-11-17] MEDS: Pantoprazole 40 MG VIAL IVP SCH ×2 (06:01→17:02)
[2016-11-17 06:20] LABS: Basophils % 0.2 %; Eosinophils # 0.3 K/mcL (0.0-0.6); Eosinophils % 4.1 %; Hematocrit 23.1 % (37.5-50.1); Hemoglobin 7.7 g/dL (12.9-16.9); Immature Granulocytes % 0.6 % (0-4); Lymphocytes # 1.8 K/mcL (0.6-4.6); Lymphocytes % 27.8 %; Mean Corpuscular HGB Conc 33.3 g/dL (31.6-35.5); Mean Corpuscular Hemoglobin 30.9 pg (28.0-33.3); Mean Corpuscular Volume 92.8 fL (83.0-100.0); Mean Platelet Volume 9.7 fL (9.4-12.4); Monocytes # 0.6 K/mcL (0.0-1.3); Monocytes % 8.9 %; Neutrophils # 3.7 K/mcL (1.6-8.9); Platelet Count 184 K/mcL (140-400); Red Blood Count 2.49 M/mcL (4.19-5.50); Red Cell Distribution Width 13.1 % (11.5-14.5); Segmented Neutrophils % 58.4 %
[2016-11-17 06:39] LABS: BUN/Creatinine Ratio 15 (6-26); Carbon Dioxide 20 mEq/L (19-29); Chloride 112 mEq/L (98-109); Glucose 115 mg/dL (70-99); Osmolality,Calculated 291 (280-300); Potassium 3.7 mEq/L (3.5-4.5); Sodium 140 mEq/L (136-145); eGFR For African Americans > 60 (> 60); eGFR For Non-African Americans > 60 (> 60)
[2016-11-17 06:42] LABS: Blood Urea Nitrogen 12 mg/dL (8-26)
[2016-11-17] MEDS: Metoprolol XL (24 HR) Succ 50 MG TAB.ER.24H PO SCH (08:46)
[2016-11-17] MEDS: amLODIPine 5 MG TABLET PO SCH (08:46)
[2016-11-17] MEDS: traMADol 50 MG TABLET PO PRN ×2 (08:48→17:06)
[2016-11-17] MEDS: D5% in 0.45% NACL 1,000 ML IVC SCH (08:53)
[2016-11-17 11:16] LABS: Hematocrit 23.6 % (37.5-50.1)
[2016-11-17] MEDS: Loratadine 10 MG TABLET PO SCH (11:22)
--- NOTE | 2016-11-17 14:01 | Internal Med Progress Note ---
Date of Encounter: 11/17/16 Time of Encounter: 10:05 - Assessment and plan (1) Gastrointestinal hemorrhage with melena Current Visit: Yes Status: Acute Assessment and plan: Upper GI endoscopy showed the presence of gastritis and nonbleeding duodenal ulcer measuring about 1 cm in diameter. There was no signs of bleeding. Patient has had no further episodes of melena. His hemoglobin levels have remained at 7.7 despite blood transfusion of 1 unit packed blood cells. Discussed with GI. As the patient is not having any further episodes of bleeding, recommend transfusion of one more unit and monitoring patient overnight for any further symptoms. He may be able to be discharged tomorrow with outpatient follow-up if his hemoglobin levels remained stable. (2) Orthostatic hypotension Current Visit: Yes Status: Resolved Assessment and plan: This has resolved (3) Syncope Current Visit: Yes Status: Resolved Assessment and plan: From anemia and GI bleed Qualifiers: Syncope type: vasovagal syncope Qualified Code(s): R55 - Syncope and collapse (4) CAD (coronary artery disease) Current Visit: Yes Status: Chronic Assessment and plan: No chest pain. Will start patient back on aspirin. We will continue to hold Plavix for now. Qualifiers: Coronary Disease-Associated Artery/Lesion type: [place] artery [place] vs. transplanted heart: [place] heart Associated angina: without angina Qualified Code(s): I25.10 - Atherosclerotic heart disease of [place] coronary artery without angina pectoris (5) Hypertension Current Visit: Yes Status: Chronic Assessment and plan: Well-controlled Qualifiers: Hypertension type: essential hypertension Qualified Code(s): I10 - Essential (primary) hypertension (6) BPH (benign prostatic hyperplasia) Current Visit: Yes Status: Chronic Qualifiers: Prostatic enlargement morphology: unspecified morphology Lower urinary tract symptom presence: symptoms present Qualified Code(s): N40.1 - Benign prostatic hyperplasia with lower urinary tract symptoms (7) Lumbar radiculopathy, right Current Visit: Yes Status: Acute Assessment and plan: Supportive care with pain control. We will consult physical therapy. Will arrange for outpatient evaluation with spine surgery. - Subjective Interval history: Patient complains mainly of the right lower extremity sciatica related pain. No new episodes of melena. No hematemesis. Underwent upper GI endoscopy to yesterday. Since then he has been tolerating clear liquids well. - Constitutional Vitals: Temp Pulse Resp BP Pulse Ox 97.7 F 77 16 119/74 95 11/17/16 11:28 11/17/16 11:28 11/17/16 11:28 11/17/16 11:28 11/17/16 11:28 General appearance: Present: cooperative, mild distress, A&O X 3, answers questions appropriately - Respiratory Respiratory exam: Present: CTAB. Absent: accessory muscle use, rales, rhonchi, wheezes - Cardiovascular Cardiovascular exam: Present: RRR, +S1, +S2. Absent: diastolic murmur, gallop, rubs, systolic murmur - GI/Abdominal GI/Abdominal exam: Present: normal bowel sounds, soft, no peritoneal signs. Absent: distended, tenderness - Extremities Exam Extremities exam: Present: warm, radial pulses palpable and symetrical. Absent : calf tenderness, cyanotic, pedal edema - Neurological Exam Neurological exam: Present: alert, oriented X3, no focal deficits. Absent: facial droop, speech deficit - Skin Skin exam: Present: dry, intact, pallor Internal Medicine: Result - Labs CBC & Chem 7: 11/17/16 10:48 11/17/16 04:53 Labs: Short CBC 11/17/16 11/17/16 Range/Units 04:53 10:48 WBC 6.3 (4.3-11.1) K/mcL Hgb 7.7 L 8.0 L (12.9-16.9) g/dL Hct 23.1 L 23.6 L (37.5-50.1) % Plt Count 184 (140-400) K/mcL Neutrophils # 3.7 (1.6-8.9) K/mcL BMP 11/17/16 04:53 Sodium 140 Potassium 3.7 Chloride 112 H Carbon Dioxide 20 BUN 12 D Creatinine 0.78 Glucose 115 H Calcium 8.0 L - ABG Interpretation ABG results: PT/INR, D-dimer PT 13.7 Seconds (9.4-12.1) H 11/14/16 10:55 - VTE Reasons for not Prescribing Prophylaxis: Treatment not Indicated - Low risk for VTE Consult Discharge Plan - Plan Additional Instructions: Follow up with spine surgery after discharge in 1-2 weeks for lumbar radiculopathy Referrals: Lydia Slater, EMS DIRECTOR [Primary Care Provider] - - Attending Attestation This document has been at least partially created by [employer] recognition technology by Dr. Valerio. Errors in grammar, wording or other phrases may exist. If errors are found after the documentation is signed, they will be addressed individually in the addendum section of this document when appropriate.
[2016-11-17] MEDS ORDERED: 0.9 % Sodium Chloride 250 ML ONE (15:31)
[2016-11-18] MEDS: *HR* Morphine 2 MG/ML SYRINGE IVP PRN (01:05)
[2016-11-18 05:47] LABS: Basophils % 0.2 %; Eosinophils # 0.2 K/mcL (0.0-0.6); Eosinophils % 4.1 %; Hematocrit 26.2 % (37.5-50.1); Hemoglobin 8.9 g/dL (12.9-16.9); Immature Granulocytes % 0.5 % (0-4); Lymphocytes # 1.9 K/mcL (0.6-4.6); Lymphocytes % 34.1 %; Mean Corpuscular Hemoglobin 31.6 pg (28.0-33.3); Mean Corpuscular Volume 92.9 fL (83.0-100.0); Mean Platelet Volume 9.7 fL (9.4-12.4); Monocytes # 0.5 K/mcL (0.0-1.3); Monocytes % 8.4 %; Platelet Count 209 K/mcL (140-400); Red Blood Count 2.82 M/mcL (4.19-5.50); Red Cell Distribution Width 13.2 % (11.5-14.5); Segmented Neutrophils % 52.7 %
[2016-11-18] MEDS: Pantoprazole 40 MG VIAL IVP SCH (05:54)
[2016-11-18] MEDS: amLODIPine 5 MG TABLET PO SCH (07:42)
[2016-11-18] MEDS: Loratadine 10 MG TABLET PO SCH (07:42)
[2016-11-18] MEDS: Metoprolol XL (24 HR) Succ 50 MG TAB.ER.24H PO SCH (07:42)
[2016-11-18] MEDS: traMADol 50 MG TABLET PO PRN (07:51)
[2016-11-18] MEDS ORDERED: Aspirin Enteric Coated 81 MG Tablet PO SCH (09:00)
--- NOTE | 2016-11-18 10:19 | Discharge Summary ---
Date of Encounter: 11/18/16 Time of Encounter: 10:27 - Discharge Diagnosis (1) Gastrointestinal hemorrhage with melena Priority: Primary Status: Acute (2) Orthostatic hypotension Priority: Secondary Status: Resolved (3) Syncope Priority: Secondary Status: Resolved Qualifiers: Syncope type: vasovagal syncope Qualified Code(s): R55 - Syncope and collapse (4) CAD (coronary artery disease) Priority: Secondary Status: Chronic Qualifiers: Coronary Disease-Associated Artery/Lesion type: [place] artery [place] vs. transplanted heart: [place] heart Associated angina: without angina Qualified Code(s): I25.10 - Atherosclerotic heart disease of [place] coronary artery without angina pectoris (5) Hypertension Priority: Secondary Status: Chronic Qualifiers: Hypertension type: essential hypertension Qualified Code(s): I10 - Essential (primary) hypertension (6) BPH (benign prostatic hyperplasia) Priority: Secondary Status: Chronic Qualifiers: Prostatic enlargement morphology: unspecified morphology Lower urinary tract symptom presence: symptoms present Qualified Code(s): N40.1 - Benign prostatic hyperplasia with lower urinary tract symptoms (7) Lumbar radiculopathy, right Priority: Secondary Status: Acute (8) Duodenal ulcer Priority: Secondary Status: Acute (9) Gastritis Priority: Secondary Status: Acute Qualifiers: Gastritis type: other gastritis Chronicity: acute Gastritis bleeding: without bleeding Qualified Code(s): K29.00 - Acute gastritis without bleeding - Discharge Medications Prescriptions: Omeprazole [PriLOSEC] 20 mg PO BIDAC #60 cap Home Medications: Tamsulosin HCl [Flomax] 0.4 mg PO DAILY #14 cap.er.24h 11/05/16 [Rx] Amlodipine [Norvasc] 5 mg PO DAILY 11/15/16 [History] Aspirin [Lo-Dose Aspirin EC] 81 mg PO DAILY 11/15/16 [History] Loratadine [Allergy Relief] 10 mg PO DAILY 11/15/16 [History] Metoprolol XL (24 HR) Succ [Toprol Xl] 50 mg PO DAILY 11/15/16 [History] Nitroglycerin [Nitrostat] 0.4 mg SL AD PRN 11/15/16 [History] Pravastatin Sodium [Pravachol] 80 mg PO DAILY 11/15/16 [History] Tramadol HCl [Ultram] 50 mg PO BID PRN 11/15/16 [History] Omeprazole [PriLOSEC] 20 mg PO BIDAC #60 cap 11/18/16 [Rx] Allergies/Adverse Reactions: Allergies No Known Allergies Allergy (Verified 11/14/16 22:32) Date of admission: 11/15/16 03:02 Primary care physician: Lydia Slater CNP Consults: 11/15/16 03:06 Consult to Gastroenterology [CONS] Routine Consulting Provider: Berry Pena Reason for Consult: Possible upper GI bleed; syncope Call Completed: No 11/17/16 14:06 Consult to Occupational Therapy [CONS] Routine Comment: Evaluate, develop and implement POC Consult to Physical Therapy [CONS] Routine Comment: Evaluate, develop and implement POC Discharging clinician: Jose Valerio Anticipated date of discharge: 11/18/16 - Patient Status Disposition: Home, Self-Care Condition: Good Overall status at discharge: patient is progressing back to baseline - Discharge Instructions Follow Up With: Lydia Slater CNP [Primary Care Provider] - (In 1-2 weeks) Additional Instructions: Follow up with spine surgery after discharge in 1-2 weeks for lumbar radiculopathy Follow-up with GI in 3-4 weeks for GI bleed and duodenal ulcer Follow-up with cardiology in 1 week for coronary artery disease status post stents - Diet and Activity Activity: return to work once cleared by your PCP/specialist (After Follow-up with PCP), resume usual activities as tolerated Diet: low fat, low cholesterol, low salt diet, other ([place] diet) Hospital course: Mr. Skinner is a 66 year old male patient with a history of hypertension, coronary artery disease status post stents on aspirin and Plavix presented to the ER with syncopal episode and orthostatic hypotension related to upper GI bleed. Patient was having melena prior to presentation. He was monitored in the hospital closely and underwent upper GI endoscopy and bleeding duodenal ulcer measuring about 1 cm in size and gastritis without any active bleeding. Patient had been taking ibuprofen for sciatica related pain. This medication has since been stopped. He also received 2 units of packed red blood cell transfusion during his stay here and his hemoglobin levels have improved. Presently he is feeling much better and is stable to be discharged home. He will be discharged on omeprazole twice daily. 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 She will also follow up with GI for his duodenal ulcer. H. pylori was negative. For his sciatica pain, he will follow up with spine surgery for further evaluation and recommendations. Pain control with tramadol. - Time Spent with Patient Total time spent providing and/or coordinating discharge services: Greater than 30 minutes (40 min) - Constitutional Vitals: Temp Pulse Resp BP Pulse Ox 98.0 F 80 14 115/74 97 11/18/16 07:06 11/18/16 07:06 11/18/16 07:06 11/18/16 07:06 11/18/16 07:06 General appearance: Present: cooperative, A&O X 3, no acute distress, answers questions appropriately - Respiratory Respiratory exam: Present: CTAB. Absent: accessory muscle use, rales, rhonchi, wheezes - Cardiovascular Cardiovascular exam: Present: RRR, +S1, +S2. Absent: diastolic murmur, gallop, rubs, systolic murmur - GI/Abdominal GI/Abdominal exam: Present: normal bowel sounds, soft, no peritoneal signs. Absent: distended, tenderness - Extremities Exam Extremities exam: Present: warm, radial pulses palpable and symetrical. Absent : calf tenderness, cyanotic, pedal edema - Skin Skin exam: Present: dry, intact - VTE Reasons for not Prescribing Prophylaxis: Treatment not Indicated - Low risk for VTE - Attending Attestation This document has been at least partially created by [employer] recognition technology by Dr. Valerio. Errors in grammar, wording or other phrases may exist. If errors are found after the documentation is signed, they will be addressed individually in the addendum section of this document when appropriate.
[2016-11-18 11:26] VITALS: BP 114/70
== END 2016-11-18 11:35 | disposition home or self-care (01) | DRG 378 ==
LOC: 3BNU 22:31 → EMEROO 22:31 → 3BNU 11-15 01:22 → SUATTDRO 11-15 03:02
PROVIDERS: ADMIT Internal Medicine; ATTEND Internal Medicine
PROC: ENDOEBX (2016-11-16 15:00)

== ENCOUNTER 2017-01-13 12:55 | Inpatient (IN) ==
--- NOTE | 2017-01-13 13:12 | Emergency Department Note ---
Disposition Clinical Impression: Community acquired pneumonia Disposition: Admitted As Inpatient Condition: Fair Forms: ED Satisfaction Letter Time of Disposition: 14:39 SOB HPI - General Chief Complaint: ED Shortness of Breath/Dyspnea Stated Complaint: pneumonia, low o2 Time Seen by Provider: 01/13/17 13:05 Source: patient Mode of arrival: ambulatory Limitations: no limitations Nursing Notes Reviewed: Yes Vital Signs Reviewed: Yes - History of Present Illness 66-year-old male who was at orthopedics today to get an injection he found his pulse ox to be low. At been diagnosed with pneumonia and treated as an outpatient. The patient was then transferred to pulmonology office who did a CT scan that shows multilobar pneumonia. His lock oxygen remained low pulmonology feels the patient should be admitted for pneumonia failure of outpatient treatment. 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 Severity: moderate Consistency/Duration: constant Improves with: oxygen Worsens with: exertion Known history of: other Associated symptoms: Reports: fever, cough Treatment prior to arrival: other (Treated with amoxicillin as an outpatient) Cough present: Yes Cough Description: Involuntary Cough Frequency: Intermittent - Related Data Home Medications Medication Instructions Recorded Confirmed Aspirin [Lo-Dose Aspirin EC] 81 mg PO DAILY 11/15/16 11/15/16 Loratadine [Allergy Relief] 10 mg PO DAILY 11/15/16 11/15/16 Metoprolol XL (24 HR) Succ [Toprol 50 mg PO DAILY 11/15/16 11/15/16 Xl] Nitroglycerin [Nitrostat] 0.4 mg SL AD PRN 11/15/16 11/15/16 Pravastatin Sodium [Pravachol] 80 mg PO DAILY 11/15/16 11/15/16 Tramadol HCl [Ultram] 50 mg PO BID PRN 11/15/16 11/15/16 amLODIPine [Norvasc] 5 mg PO DAILY 11/15/16 11/15/16 Previous Rx's Medication Instructions Recorded Tamsulosin HCl [Flomax] 0.4 mg PO DAILY #14 cap.er.24h 11/05/16 Omeprazole [PriLOSEC] 20 mg PO BIDAC #60 cap 11/18/16 Allergies Allergy/AdvReac Type Severity Reaction Status Date / Time No Known Allergies Allergy Verified 11/14/16 22:32 All systems ED: reviewed and negative except as stated. Constitutional: Denies: fever, chills, weakness, weight change Eyes: Denies: eye pain, eye discharge, vision change ENT ED: Denies: ear pain, throat pain, dental pain, hearing loss, epistaxis, congestion, dysphagia Cardiovascular: Denies: chest pain, palpitations, dyspnea on exertion, edema, syncope Respiratory: Reports: cough, dyspnea. Denies: wheezes, hemoptysis, stridor Gastrointestinal: Denies: abdominal pain, nausea, vomiting, diarrhea, constipation, hematemesis, melena, hematochezia Genitourinary: Denies: urgency, dysuria, frequency, hematuria Musculoskeletal: Denies: back pain, neck pain, arthralgia, myalgia Integumentary: Denies: rash, abrasion, lesions Neurological: Denies: headache, weakness, numbness, paresthesias, confusion, abnormal gait, vertigo Psychiatric: Denies: anxiety, depression, suicidal thoughts, homicidal thoughts , auditory hallucinations, visual hallucinations Endocrine: Denies: fatigue Hematological/Lymphatic: Denies: easy bleeding, easy bruising Allergic/Immunologic: Denies: facial swelling, urticaria Past Medical History - Past Medical History Medical history: Reports: hypertension, myocardial infarction Psychiatric history: Reports: no psych history - Social History Smoking Status: Never smoker Smokeless Tobacco Status: No Alcohol use: Reports: none Drug use: Reports: none Physical Exam - General Limitations: no limitations General appearance: alert, in no apparent distress - Head Head exam: atraumatic, normocephalic, normal inspection - Eye Eye exam: Present: normal appearance, PERRL, EOMI - ENT ENT exam: normal exam, normal oropharynx, mucous membranes moist - Neck Neck exam: Present: normal inspection, full ROM, trachea midline - Chest Chest inspection: Present: normal inspection, symmetric chest wall rise - Respiratory Respiratory exam: Present: normal lung sounds bilaterally - Cardiovascular Cardiovascular exam: Present: regular rate, normal rhythm, normal heart sounds - Abdominal Exam Abdominal exam: Present: soft, Non-Tender. Absent: tenderness, distention, guarding, rebound, rigidity - Extremities Exam Extremities exam: Present: normal inspection, full ROM. Absent: tenderness, pedal edema - Expanded Lower Extremity Exam Neurovascular/Tendon exam: Absent: motor deficit, sensory deficit, tendon deficit Gait: observed and normal - Back Exam Back exam: Present: normal inspection, full ROM. Absent: tenderness - Neurological Exam Neurological exam: Present: alert, oriented X3 - Psychiatric Psychiatric exam: Present: normal affect - Skin Skin exam: Present: warm, dry, intact, normal color Course - Reevaluation(s) Reevaluation #1: 66-year-old who has had a cough and shortness of breath for about a week was treated with outpatient amoxicillin without improvement saw pulmonology today did a CT scan that shows pneumonia. Recommendations are for admission for IV antibiotics. Time: 14:37 - Consultations Consultation #1: Discussed with , failed outpatient treatment of pneumonia admit. Time: 13:15 Consultation #2: Discussed with Dr. Case, admit. Time: 14:37 Vital Signs Temperature 97.7 F 01/13/17 12:57 Pulse Rate 91 01/13/17 12:57 Respiratory Rate 20 01/13/17 12:57 Blood Pressure 129/90 01/13/17 12:57 O2 Sat by Pulse Oximetry 93 01/13/17 12:57 Temperature 97.7 F 01/13/17 12:57 Pulse Rate 89 01/13/17 13:44 Respiratory Rate 16 01/13/17 13:44 Blood Pressure 120/86 01/13/17 13:44 O2 Sat by Pulse Oximetry 95 01/13/17 13:44 Oxygen Delivery Oxygen Delivery Room Air Shortness of Breath/Dyspnea - Lab Data Result diagrams: 01/13/17 13:29 01/13/17 13:55 Lab Results 01/13/17 01/13/17 01/13/17 Range/Units 13:29 13:29 13:29 WBC 8.4 (4.3-11.1) K/mcL RBC 4.48 (4.19-5.50) M/mcL Hgb 12.7 L (12.9-16.9) g/dL Hct 40.1 (37.5-50.1) % MCV 89.5 (83.0-100.0) fL MCH 28.3 (28.0-33.3) pg MCHC 31.7 (31.6-35.5) g/dL RDW 13.5 (11.5-14.5) % Plt Count 524 H (140-400) K/mcL MPV 9.5 (9.4-12.4) fL Immature Gran % 1.1 (0-4) % Seg Neutrophils % 71.8 % Lymphocytes % 18.0 % Monocytes % 6.8 % Eosinophils % 2.1 % Basophils % 0.2 % Neutrophils # 6.0 (1.6-8.9) K/mcL Lymphocytes # 1.5 (0.6-4.6) K/mcL Monocytes # 0.6 (0.0-1.3) K/mcL Eosinophils # 0.2 (0.0-0.6) K/mcL Basophils # 0.0 (0.0-0.2) K/mcL Sodium (136-145) mEq/L Potassium (3.5-4.5) mEq/L Chloride (98-109) mEq/L Carbon Dioxide (19-29) mEq/L BUN (8-26) mg/dL Creatinine (0.72-1.25) mg/dL Est GFR ( Amer) (> 60) Est GFR (Non-Af Amer) (> 60) BUN/Creatinine Ratio (6-26) Glucose (70-99) mg/dL Calculated Osmolality (280-300) Lactic Acid (0.5-2.2) mmol/L Calcium (8.6-10.8) mg/dL Troponin I 0.00 (0-0.03) ng/mL Specimen Rejected Hemolyzed 01/13/17 01/13/17 Range/Units 13:55 13:55 WBC (4.3-11.1) K/mcL RBC (4.19-5.50) M/mcL Hgb (12.9-16.9) g/dL Hct (37.5-50.1) % MCV (83.0-100.0) fL MCH (28.0-33.3) pg MCHC (31.6-35.5) g/dL RDW (11.5-14.5) % Plt Count (140-400) K/mcL MPV (9.4-12.4) fL Immature Gran % (0-4) % Seg Neutrophils % % Lymphocytes % % Monocytes % % Eosinophils % % Basophils % % Neutrophils # (1.6-8.9) K/mcL Lymphocytes # (0.6-4.6) K/mcL Monocytes # (0.0-1.3) K/mcL Eosinophils # (0.0-0.6) K/mcL Basophils # (0.0-0.2) K/mcL Sodium 142 (136-145) mEq/L Potassium 4.4 (3.5-4.5) mEq/L Chloride 108 (98-109) mEq/L Carbon Dioxide 25 (19-29) mEq/L BUN 17 (8-26) mg/dL Creatinine 0.99 (0.72-1.25) mg/dL Est GFR ( Amer) > 60 (> 60) Est GFR (Non-Af Amer) > 60 (> 60) BUN/Creatinine Ratio 17 (6-26) Glucose 101 H (70-99) mg/dL Calculated Osmolality 296 (280-300) Lactic Acid 1.0 (0.5-2.2) mmol/L Calcium 9.1 (8.6-10.8) mg/dL Troponin I (0-0.03) ng/mL Specimen Rejected - EKG Data EKG attestation: Yes I reviewed and interpreted this EKG. EKG shows normal: Reports: sinus rhythm Rate: Reports: normal Rhythm: Reports: NSR Interpretation: Reports: no acute changes
[2017-01-13 13:39] LABS: Basophils % 0.2 %; Eosinophils # 0.2 K/mcL (0.0-0.6); Eosinophils % 2.1 %; Hematocrit 40.1 % (37.5-50.1); Hemoglobin 12.7 g/dL (12.9-16.9); Immature Granulocytes % 1.1 % (0-4); Lymphocytes # 1.5 K/mcL (0.6-4.6); Mean Corpuscular HGB Conc 31.7 g/dL (31.6-35.5); Mean Corpuscular Hemoglobin 28.3 pg (28.0-33.3); Mean Corpuscular Volume 89.5 fL (83.0-100.0); Mean Platelet Volume 9.5 fL (9.4-12.4); Monocytes # 0.6 K/mcL (0.0-1.3); Monocytes % 6.8 %; Platelet Count 524 K/mcL (140-400); Red Blood Count 4.48 M/mcL (4.19-5.50); Red Cell Distribution Width 13.5 % (11.5-14.5); Segmented Neutrophils % 71.8 %
[2017-01-13 14:17] LABS: BUN/Creatinine Ratio 17 (6-26); Blood Urea Nitrogen 17 mg/dL (8-26); Calcium 9.1 mg/dL (8.6-10.8); Carbon Dioxide 25 mEq/L (19-29); Chloride 108 mEq/L (98-109); Glucose 101 mg/dL (70-99); Osmolality,Calculated 296 (280-300); Potassium 4.4 mEq/L (3.5-4.5); Sodium 142 mEq/L (136-145); eGFR For African Americans > 60 (> 60); eGFR For Non-African Americans > 60 (> 60)
[2017-01-13] MEDS ORDERED: Levofloxacin 750 MG/150 ML 750 MG/150 ML BAG IVPB ONE (14:34)
[2017-01-13] MEDS ORDERED: Ondansetron 4 MG/2 ML VIAL IVP PRN (15:46)
[2017-01-13] MEDS ORDERED: Naloxone 0.4 MG/ML INJ IVP PRN (15:46)
[2017-01-13] MEDS ORDERED: Acetaminophen 325 MG TABLET PO PRN (15:46)
[2017-01-13] MEDS ORDERED: Azithromycin 500 MG in D5% in Water 250 ML IVPB SCH (16:00)
--- NOTE | 2017-01-13 16:39 | Internal Med History&Physical ---
<Sally Linder Jenny - Last Filed: 01/13/17 16:52> Date of Encounter: 01/13/17 Time of Encounter: 16:31 Assessment and Plan (1) Community acquired pneumonia Current visit: Yes Status: Acute initially diagnosed 2 weeks prior to admission; failed outpatient treatment with amoxicillin and Levaquin. Outpatient CT with reported multilobar pneumonia. IV Levaquin given in the ED, change to azithromycin and Rocephin. Urinary antigens, resp PCR and sputum cx pending (2) Acute respiratory failure with hypoxia Current visit: Yes Status: Acute Pox in 80s on room air. Secondary to pneumonia. Supplemental O2, treat underlying cause, aggressive IS. (3) CAD (coronary artery disease) Current visit: No Status: Chronic per hx. S/p remote PCI. Asymptomatic, denies CP. Cont home ASA, BB, statin Qualifiers: Coronary Disease-Associated Artery/Lesion type: [place] artery [place] vs. transplanted heart: ho[place] heart Associated angina: without angina Qualified Code(s): I25.10 - Atherosclerotic heart disease of ho[place] coronary artery without angina pectoris (4) Hypertension Current visit: No Status: Chronic per hx. BP controlled. Cont home BP medications. Monitor BP and titrate PRN Qualifiers: Hypertension type: essential hypertension Qualified Code(s): I10 - Essential (primary) hypertension (5) Lumbar radiculopathy, right Current visit: No Status: Acute has known lumbar stenosis with radiculopathy to right leg. No saddle anaesthesia , bowel or bladder incontinence. Follows with ortho outpatient. Can follow-up as previously planned (6) BPH (benign prostatic hyperplasia) Current visit: No Status: Chronic per hx. Sx's controlled with home flomax. Qualifiers: Prostatic enlargement morphology: unspecified morphology Lower urinary tract symptom presence: symptoms present Qualified Code(s): N40.1 - Benign prostatic hyperplasia with lower urinary tract symptoms (7) DVT prophylaxis Current visit: Yes Status: Acute [facility] Internal Medicine - H&P: HPI Chief complaint: shortness of breath Admitted From: Home History of present illness: Mr. Skinner is a 66 year old male with PMH CAD, HTN, and lumbar stenosis who presented to [facility] on 01/13/2017 with complaints of shortness of breath. Outpatient CT showed multilobar pneumonia and he was admitted for IV ATB. Information obtained lurdes chart review and patient report. Patent says he was dx with pneumonia 2 weeks ago; was initially started on Amoxicillin, sx's persisted and ATB changed to Levaquin. Went for outpatient CT today and was hypoxic, he was refereed to Pulmonology who did CT scan that showed multilobar pneumonia. Says he feels well over all but does get SOB with exertion. Has a dry , non-productive cough. No fevers or chills, no sick contacts that he is aware of Past Med Surg Social Fam HX - Past Medical History Medical history: hypertension, myocardial infarction Psychiatric history: no psych history - Past Surgical History Surgical History: angioplasty/stent - Social History Smoking Status: Never smoker Smokeless Tobacco Status: No Alcohol use: none Drug use: none - Family History Mother Living Status: Hx Family Cardiac Disorders: Yes (CHF, HTN) Hx Family Respiratory Disorders: No Hx Family Cancer: No Hx Family GI Disorders: No Hx Family Endocrine Disorder: No Hx Family Neuromuscular Disorders: No Hx Family Neurologic Disorders: No Hx Family HEENT Disorders: No Hx Family Autoimmune Disorders: No Father Living Status: Hx Family Cardiac Disorders: No Hx Family Respiratory Disorders: No Hx Family Cancer: No Hx Family GI Disorders: No Hx Family Endocrine Disorder: No Hx Family Neuromuscular Disorders: Yes Hx Family Neurologic Disorders: No Hx Family HEENT Disorders: No Hx Family Autoimmune Disorders: No Internal Medicine - H&P: Meds Tamsulosin HCl [Flomax] 0.4 mg PO DAILY #14 cap.er.24h 11/05/16 [Rx] Aspirin [Lo-Dose Aspirin EC] 81 mg PO DAILY 11/15/16 [History] Loratadine [Allergy Relief] 10 mg PO DAILY 11/15/16 [History] Metoprolol XL (24 HR) Succ [Toprol Xl] 50 mg PO DAILY 11/15/16 [History] Nitroglycerin [Nitrostat] 0.4 mg SL AD PRN 11/15/16 [History] amLODIPine [Norvasc] 5 mg PO DAILY 11/15/16 [History] Omeprazole [PriLOSEC] 20 mg PO BIDAC #60 cap 11/18/16 [Rx] Albuterol Sulfate [Proair Hfa] 2 puff IH Q4-6H PRN 01/13/17 [History] Atorvastatin Calcium [Lipitor] 80 mg PO DAILY 01/13/17 [History] levoFLOXacin [Levofloxacin] 500 mg PO DAILY 01/13/17 [History] Allergies No Known Allergies Allergy (Verified 01/13/17 14:53) All Systems PM: A 10-system review of systems was performed and is negative for pertinent findings except as documented above in the HPI. - Constitutional Constitutional: no chills, no fever(s), no night sweats - EENT Eyes: no change in vision, no discharge, no pain, no photophobia Ears: no ear discharge, no ear pain, no tinnitus Nose, mouth and throat: no dysphagia, no nasal discharge, no neck pain, no sore throat - Cardiovascular Cardiovascular ROS IM: no chest pain, no diaphoresis, no dyspnea, no lightheadedness, no palpitations, no syncope - Respiratory Respiratory: cough, dyspnea on exertion, no dyspnea, no wheezing, no excessive phlegm production - Gastrointestinal Gastrointestinal: no abdominal pain, no diarrhea, no hematemesis, no hematochezia, no melena, no nausea, no vomiting - Musculoskeletal Musculoskeletal ROS IM: no numbness, no tingling - Integumentary Integumentary IM: no rash, no unusual bruising - Neurological Neurological ROS: no confusion, no convulsions, no focal weakness, no numbness, no tingling, no tremor(s) - Hematologic/Lymphatic Hematologic/Lymphatic: no easy bruising - Constitutional Vitals: Temp Pulse Resp BP Pulse Ox 97.5 F L 80 16 135/84 94 01/13/17 15:44 01/13/17 15:44 01/13/17 15:44 01/13/17 15:44 01/13/17 15:44 General appearance: Present: A&O X 3, no acute distress - Head Head exam: Present: atraumatic, normocephalic - Eye Eye exam: Present: PERRL, conjuntiva pink, sclera anicteric Pupils: Present: PERRL - Neck Neck exam general surgery: Present: supple, trachea midline. Absent: lymphadenopathy - Respiratory Respiratory exam: Present: CTAB, rhonchi. Absent: accessory muscle use, rales, wheezes - Cardiovascular Cardiovascular exam: Present: RRR, +S1, +S2. Absent: diastolic murmur, gallop, rubs, systolic murmur - GI/Abdominal GI/Abdominal exam: Present: normal bowel sounds, soft, no peritoneal signs. Absent: distended, tenderness - Extremities Exam Extremities exam: Present: warm, radial pulses palpable and symetrical. Absent : calf tenderness, cyanotic, pedal edema - Neurological Exam Neurological exam: Present: CN II-XII intact, oriented X3, no focal deficits. Absent: pronater drift, facial droop, speech deficit - Skin Skin exam: Present: dry, intact Internal Med - H&P Results - Labs CBC & Chem 7: 01/13/17 13:29 01/13/17 13:55 <Tess Daniel - Last Filed: 01/14/17 08:54> Date of Encounter: 01/14/17 Internal Medicine - H&P: HPI History of present illness: Mr. Skinner is a 66 year old male All Systems PM: A 10-system review of systems was performed and is negative for pertinent findings except as documented above in the HPI. - Constitutional Vitals: Temp Pulse Resp BP Pulse Ox 98.0 F 78 19 109/65 94 01/14/17 06:52 01/14/17 06:52 01/14/17 06:52 01/14/17 06:52 01/14/17 06:52 Internal Med - H&P Results - Labs CBC & Chem 7: 01/14/17 03:03 01/14/17 03:03 Labs: Short CBC 01/14/17 Range/Units 03:03 WBC 7.5 (4.3-11.1) K/mcL Hgb 11.5 L (12.9-16.9) g/dL Hct 36.5 L (37.5-50.1) % Plt Count 458 H (140-400) K/mcL Neutrophils # 4.7 (1.6-8.9) K/mcL BMP 01/14/17 03:03 Sodium 143 Potassium 4.6 H Chloride 110 H Carbon Dioxide 25 BUN 18 Creatinine 1.05 Glucose 103 H Calcium 8.9 Liver Function 01/14/17 Range/Units 03:03 Total Bilirubin 0.3 (0.2-1.2) mg/dL AST 21 (5-34) Units/L ALT 21 (0-55) Units/L Alkaline Phosphatase 80 (38-126) Units/L Albumin 2.5 L (3.5-5.0) g/dL - Attending Attestation This is a late entry for a patient I examined and reviewed laboratory, imaging and all diagnostic data on 01/13/17. My medical decision-making was reviewed with Sally Duque NP. I agree with the documented findings, disposition and treatment plan as described above. History and exam by me shows: productive cough and diffuse rhonchi. CT chest shows multilobar PNA. Started on Ceftriaxone and azithromycin.
[2017-01-14 04:01] LABS: Basophils % 0.4 %; Eosinophils # 0.3 K/mcL (0.0-0.6); Hematocrit 36.5 % (37.5-50.1); Hemoglobin 11.5 g/dL (12.9-16.9); Immature Granulocytes % 1.2 % (0-4); Lymphocytes # 1.8 K/mcL (0.6-4.6); Lymphocytes % 24.4 %; Mean Corpuscular HGB Conc 31.5 g/dL (31.6-35.5); Mean Corpuscular Hemoglobin 28.8 pg (28.0-33.3); Mean Corpuscular Volume 91.3 fL (83.0-100.0); Mean Platelet Volume 9.7 fL (9.4-12.4); Monocytes # 0.6 K/mcL (0.0-1.3); Neutrophils # 4.7 K/mcL (1.6-8.9); Platelet Count 458 K/mcL (140-400); Red Cell Distribution Width 13.5 % (11.5-14.5)
[2017-01-14 04:15] LABS: Alanine Aminotransferase 21 Units/L (0-55); Albumin 2.5 g/dL (3.5-5.0); Albumin/Globulin Ratio 0.6 (1.1-2.2); Alkaline Phosphatase 80 Units/L (38-126); Aspartate Amino Transferase 21 Units/L (5-34); BUN/Creatinine Ratio 17 (6-26); Bilirubin,Total 0.3 mg/dL (0.2-1.2); Blood Urea Nitrogen 18 mg/dL (8-26); Calcium 8.9 mg/dL (8.6-10.8); Carbon Dioxide 25 mEq/L (19-29); Chloride 110 mEq/L (98-109); Globulin 4.1 g/dL (2.4-3.5); Glucose 103 mg/dL (70-99); Osmolality,Calculated 298 (280-300); Potassium 4.6 mEq/L (3.5-4.5); Sodium 143 mEq/L (136-145); Total Protein 6.6 g/dL (6.0-8.3); eGFR For African Americans > 60 (> 60); eGFR For Non-African Americans > 60 (> 60)
[2017-01-14] MEDS: *HR* Enoxaparin 40 MG/0.4 ML SYRINGE SQ SCH (05:26)
--- NOTE | 2017-01-14 07:49 | Pulmonology Consult Note ---
Date of Encounter: 01/14/17 Time of Encounter: 07:43 Assessment and Plan (1) Acute respiratory failure with hypoxia Current Visit: Yes Status: Acute Acute hypoxemic respiratory failure with evidence of bilateral opacities consistent with pneumonia lower lobe predominance suggest possibility of aspiration in the context of recent GI manipulation/peptic ulcer disease and continued use on proton pump inhibitor. He has failed antimicrobial therapy 2 and was persistent opacities would proceed with bronchoscopy. Differential diagnosis include organizing pneumonia although not a typical radiographic feature noted on his CT scan much less likely malignancy. He has had recent exposure to hospital-acquired organisms and given failure of outpatient therapy would recommend an short-term treating for possibility of MRSA or pseudomonal infections and also covering for aspiration organisms. An empiric regimen including vancomycin and piperacillin/tazobactam pending culture result is reasonable Recommend getting broad cultures including sputum and blood cultures. Continue supplemental oxygen therapy to keep saturation around 90-94% A bronchoscopy is recommended. The procedure , risks, benefits, complications, and expected outcomes have been reviewed. Benefits of diagnosis, as well as risks to include bleeding, infection, pneumothorax which may require surgical intervention, and in a small population. The patient is aware that sometimes test is nondiagnostic. Discussed with patient and agrees to proceed. Recommend he be covered with chemical DVT prophylaxis if no contraindication from recent peptic ulcer disease (2) Pneumonia Current Visit: Yes Status: Acute Qualifiers: Pneumonia type: due to unspecified organism Laterality: bilateral Lung location: unspecified part of lung Qualified Code(s): J18.9 - Pneumonia, unspecified organism (3) DVT prophylaxis Current Visit: Yes Status: Acute History of Present Illness Consult date: 01/14/17 Requesting physician: Nav Villegas Reason for consult: pneumonia Chief complaint: Cough History of present illness: This is a very pleasant 66-year-old gentleman who presented for evaluation of pneumonia. Patient has had a complicated 2 months a medical history including 2 months ago being diagnosed with peptic ulcer disease treated for gastric ulcer and undergone endoscopy at that time he is been on proton pump inhibitor since. This was in her secondary to treatment with steroid and ibuprofen for radiculopathy pain down the leg diagnoses as sciatica he had been undergoing medication treatment for this along with referral to physical therapy however had not started as of yet. He also been referred to receive steroid injections through pain management although he states he has not received any injections as of yet. He developed sinus congestion approximately 3 weeks ago and has had increased cough and "raspy" breathing he was given a prescription for Augmentin at the end of the last month but had no improvement in symptoms his PCP switched antimicrobials to Levaquin and then ordered a chest x-ray which was notable more notable for bilateral opacities followed by CT scan which was suggestive of bilateral pneumonia for which she was evaluated yesterday in pulmonary clinic. He was noted to be hypoxic on room air and with notable bilateral opacities that had not responded antimicrobials he was referred by his communications analyst to ED for evaluation of hypoxic respiratory failure pneumonia and possibility of bronchoscopy. Patient is a lifelong nonsmoker. 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 No sick contacts or recent travel no exotic pets. He denies choking when eating fevers chills vomiting bodyaches joint pains he has had minor weight loss he attributes to medication effect (antibiotics). He has no family history of pulmonary diseases and he himself has not been diagnosed with any pulmonary diseases before this. Past Med Surg Social Fam HX - Past Medical History Medical history: hypertension, myocardial infarction Psychiatric history: no psych history - Past Surgical History Surgical History: angioplasty/stent - Social History Smoking Status: Never smoker Smokeless Tobacco Status: No Alcohol use: none Drug use: none - Family History Mother Living Status: Cause of : unknown Hx Family Cardiac Disorders: Yes (hypertension, heart bypass surgery) Hx Family Respiratory Disorders: No Hx Family Cancer: No Hx Family GI Disorders: No Hx Family Endocrine Disorder: No Hx Family Neuromuscular Disorders: No Hx Family Neurologic Disorders: No Hx Family HEENT Disorders: No Hx Family Autoimmune Disorders: No Father Living Status: Hx Family Cardiac Disorders: No Hx Family Respiratory Disorders: No Hx Family Cancer: No Hx Family GI Disorders: No Hx Family Endocrine Disorder: No Hx Family Neuromuscular Disorders: Yes Hx Family Neurologic Disorders: No Hx Family HEENT Disorders: No Hx Family Autoimmune Disorders: No Medications and Allergies Tamsulosin HCl [Flomax] 0.4 mg PO DAILY #14 cap.er.24h 11/05/16 [Rx] Aspirin [Lo-Dose Aspirin EC] 81 mg PO DAILY 11/15/16 [History] Loratadine [Allergy Relief] 10 mg PO DAILY 11/15/16 [History] Metoprolol XL (24 HR) Succ [Toprol Xl] 50 mg PO DAILY 11/15/16 [History] Nitroglycerin [Nitrostat] 0.4 mg SL AD PRN 11/15/16 [History] amLODIPine [Norvasc] 5 mg PO DAILY 11/15/16 [History] Omeprazole [PriLOSEC] 20 mg PO BIDAC #60 cap 11/18/16 [Rx] Albuterol Sulfate [Proair Hfa] 2 puff IH Q4-6H PRN 01/13/17 [History] Atorvastatin Calcium [Lipitor] 80 mg PO DAILY 01/13/17 [History] levoFLOXacin [Levofloxacin] 500 mg PO DAILY 01/13/17 [History] Allergies No Known Allergies Allergy (Verified 01/13/17 14:53) All Systems: A 10-system review of systems was performed and is negative for pertinent findings except as documented above in the HPI. Physical Examination Vital Signs: Vital Signs, Last 4 Hours Temp Pulse Resp BP Pulse Ox 01/14/17 06:52 98.0 F 78 19 109/65 94 01/14/17 05:24 93 General appearance: no acute distress Eyes: nonicteric ENT: oropharynx moist Neck: supple Effort: normal Inspection: kyphosis (Mild kyphosis) Auscultation: bilateral: rales (In lung bases) Cardiovascular: regular rate and rhythm Gastrointestinal: normoactive bowel sounds Integumentary: normal Extremities: no edema Musculoskeletal: no deformities normal mental status, non-focal exam mood appropriate Results - Laboratory Findings CBC and BMP: 01/14/17 03:03 01/14/17 03:03 Abnormal lab findings: Abnormal lab results RBC 4.00 M/mcL (4.19-5.50) L 01/14/17 03:03 Hgb 11.5 g/dL (12.9-16.9) L 01/14/17 03:03 Hct 36.5 % (37.5-50.1) L 01/14/17 03:03 MCHC 31.5 g/dL (31.6-35.5) L 01/14/17 03:03 Plt Count 458 K/mcL (140-400) H 01/14/17 03:03 Potassium 4.6 mEq/L (3.5-4.5) H 01/14/17 03:03 Chloride 110 mEq/L (98-109) H 01/14/17 03:03 Glucose 103 mg/dL (70-99) H 01/14/17 03:03 Albumin 2.5 g/dL (3.5-5.0) L 01/14/17 03:03 Globulin 4.1 g/dL (2.4-3.5) H 01/14/17 03:03 Albumin/Globulin Ratio 0.6 (1.1-2.2) L 01/14/17 03:03 - Microbiology Findings Microbiology Findings: Microbiology, Last 48 Hours 01/13/17 17:00 Legionella Antigen - Final Urine,Clean Catch Streptococcus pneumoniae Antigen (M - Final - Diagnostic Findings Chest x-ray: report reviewed, image reviewed CT scan - chest: report reviewed, image reviewed - Clinical Findings Intake & Output: Intake & Output 01/13/17 01/13/17 01/14/17 15:59 23:59 07:59 Intake Total 590 / 590 0 / 0 Output Total 295 / 295 0 / 0 Balance 295 / 295 0 / 0 Weight 87 kg Consult Discharge Plan - Plan Referrals: Lydia Slater, BOTTLE DEALER [Primary Care Provider] -
[2017-01-14] MEDS: Loratadine 10 MG TABLET PO SCH (08:19)
[2017-01-14] MEDS: Aspirin Enteric Coated 81 MG Tablet PO SCH (08:19)
[2017-01-14] MEDS: Metoprolol XL (24 HR) Succ 50 MG TAB.ER.24H PO SCH (08:20)
[2017-01-14] MEDS: amLODIPine 5 MG TABLET PO SCH (08:20)
[2017-01-14] MEDS ORDERED: Vancomycin (wt based) 1,000 MG VIAL IV SCH (09:00)
[2017-01-14] MEDS ORDERED: Levofloxacin 750 MG/150 ML 750 MG/150 ML BAG IVPB SCH (09:00)
[2017-01-14] MEDS ORDERED: Vancomycin 1,250 MG in D5% in Water 250 ML IVPB SCH ×2 (09:00→15:00)
--- NOTE | 2017-01-14 09:58 | Pre-Sedation Evaluation ---
Pre-sedation evaluation - Pre-sedation checklist Date of procedure: 01/14/17 Procedure: Bronchoscopy Recent Vitals: Last Vital Signs Temp 98.0 F 01/14/17 06:52 Pulse 78 01/14/17 06:52 Resp 19 01/14/17 06:52 BP 109/65 01/14/17 06:52 Pulse Ox 94 01/14/17 06:52 H&P (including ROS) documented in medical record: Yes Previous reaction to sedatives/anesthetics: No Dietary Status: NPO after Midnight Airway Assessment: Patient can open mouth completely, TMJ function normal Dentition: No loose teeth or bridges, dentures removed Possible difficult airway: No ASA Classification *see protocol: CLASS II-Mild systemic disease
[2017-01-14] MEDS ORDERED: Tetracaine/Benzocaine/Butamben 200MG/SPRAY (100SPY/BOT) MM ONE (09:59)
[2017-01-14] MEDS ORDERED: *HR* Midazolam HCl 5 MG/5 ML VIAL IVP PRN (09:59)
[2017-01-14] MEDS ORDERED: *HR* EPINEPHrine 1 MG/10 ML SYRINGE INTRATRACH PRN (09:59)
[2017-01-14] MEDS ORDERED: Ringers Solution, Lactated 1,000 ML IVC SCH (10:00)
[2017-01-14] MEDS ORDERED: *HR* Midazolam HCl 5 MG/5 ML VIAL IVP ONE (11:01)
[2017-01-14] MEDS ORDERED: *HR* FentaNYL (PF) 100 MCG/2 ML VIAL ONE (11:02)
[2017-01-14] MEDS ORDERED: 0.9 % Sodium Chloride 1,000 ML IVC SCH (11:30)
[2017-01-14] MEDS: *HR* FentaNYL (PF) 100 MCG/2 ML VIAL IVP PRN ×2 (11:31→11:34)
[2017-01-14] MEDS ORDERED: Albuterol 2.5 MG/3 ML NEBULIZER ONE (11:41)
[2017-01-14] MEDS ORDERED: Albuterol 2.5 MG/3 ML NEBULIZER IH ONE (11:46)
--- NOTE | 2017-01-14 14:10 | Internal Med Progress Note ---
Date of Encounter: 01/14/17 Time of Encounter: 09:55 - Assessment and plan (1) Acute respiratory failure with hypoxia Current Visit: Yes Status: Acute Assessment and plan: Patient failed outpatient therapy with antibiotics for pneumonia. CT scan of the chest concerning for multilobar pneumonia. The patient was evaluated by pulmonology today and plan is to do a bronchoscopy for further management. In the meantime, we will continue with broad-spectrum antibiotics as recommended by pulmonology with both vancomycin and Zosyn. Follow cultures. Monitor kidney function tests. Monitor vancomycin levels. (2) DVT prophylaxis Current Visit: Yes Status: Acute Assessment and plan: Continue with Lovenox. (3) BPH (benign prostatic hyperplasia) Current Visit: No Status: Chronic Qualifiers: Prostatic enlargement morphology: unspecified morphology Lower urinary tract symptom presence: symptoms present Qualified Code(s): N40.1 - Benign prostatic hyperplasia with lower urinary tract symptoms - Subjective Interval history: This is my first encounter with the patient. Patient was seen and examined in rounds. He presented with worsening shortness of breath and productive cough. Failed outpatient therapy for pneumonia. - Constitutional Vitals: Temp Pulse Resp BP Pulse Ox 97.8 F 99 14 127/74 94 01/14/17 13:19 01/14/17 13:19 01/14/17 13:19 01/14/17 13:19 01/14/17 13:19 General appearance: Present: A&O X 3, no acute distress - Head Head exam: Present: atraumatic, normocephalic - Eye Eye exam: Present: PERRL, conjuntiva pink, sclera anicteric Pupils: Present: PERRL - Neck Neck exam general surgery: Present: supple, trachea midline. Absent: lymphadenopathy - Respiratory Respiratory exam: Present: decreased breath sounds. Absent: accessory muscle use, rales, rhonchi, wheezes - Cardiovascular Cardiovascular exam: Present: RRR, +S1, +S2. Absent: diastolic murmur, gallop, rubs, systolic murmur - GI/Abdominal GI/Abdominal exam: Present: normal bowel sounds, soft, no peritoneal signs. Absent: distended, tenderness - Extremities Exam Extremities exam: Present: warm, radial pulses palpable and symetrical. Absent : calf tenderness, cyanotic, pedal edema - Neurological Exam Neurological exam: Present: CN II-XII intact, oriented X3, no focal deficits. Absent: pronater drift, facial droop, speech deficit - Skin Skin exam: Present: dry, intact Internal Medicine: Result - Labs CBC & Chem 7: 01/14/17 03:03 01/14/17 03:03 Labs: Short CBC 01/14/17 Range/Units 03:03 WBC 7.5 (4.3-11.1) K/mcL Hgb 11.5 L (12.9-16.9) g/dL Hct 36.5 L (37.5-50.1) % Plt Count 458 H (140-400) K/mcL Neutrophils # 4.7 (1.6-8.9) K/mcL BMP 01/14/17 03:03 Sodium 143 Potassium 4.6 H Chloride 110 H Carbon Dioxide 25 BUN 18 Creatinine 1.05 Glucose 103 H Calcium 8.9 Liver Function 01/14/17 Range/Units 03:03 Total Bilirubin 0.3 (0.2-1.2) mg/dL AST 21 (5-34) Units/L ALT 21 (0-55) Units/L Alkaline Phosphatase 80 (38-126) Units/L Albumin 2.5 L (3.5-5.0) g/dL Consult Discharge Plan - Plan Referrals: Lydia Slater, THERAPY MANAGER [Primary Care Provider] -
[2017-01-14 14:51] LABS: Appearance of Body Fluid Cloudy (Clear); Volume of Body Fluid 27 mL
[2017-01-14] MEDS: Piperacillin/Tazobactam 3.375 GM in D5% in Water (Mini-Bag+) 100 ML IVPB SCH (15:50)
[2017-01-14] MEDS: Ipratropium/Albuterol Neb 3 ML IH SCH ×2 (17:01→22:16)
[2017-01-15] MEDS: Piperacillin/Tazobactam 3.375 GM in D5% in Water (Mini-Bag+) 100 ML IVPB SCH ×3 (00:30→16:42)
[2017-01-15 03:32] LABS: Basophils % 0.3 %; Eosinophils # 0.3 K/mcL (0.0-0.6); Eosinophils % 3.8 %; Hematocrit 36.7 % (37.5-50.1); Hemoglobin 11.3 g/dL (12.9-16.9); Immature Granulocytes % 0.9 % (0-4); Lymphocytes # 1.6 K/mcL (0.6-4.6); Lymphocytes % 22.7 %; Mean Corpuscular HGB Conc 30.8 g/dL (31.6-35.5); Mean Corpuscular Volume 90.8 fL (83.0-100.0); Mean Platelet Volume 9.2 fL (9.4-12.4); Monocytes # 0.6 K/mcL (0.0-1.3); Neutrophils # 4.4 K/mcL (1.6-8.9); Platelet Count 490 K/mcL (140-400); Red Blood Count 4.04 M/mcL (4.19-5.50); Red Cell Distribution Width 13.4 % (11.5-14.5); Segmented Neutrophils % 64.3 %
[2017-01-15 03:40] LABS: BUN/Creatinine Ratio 13 (6-26); Blood Urea Nitrogen 13 mg/dL (8-26); Calcium 8.8 mg/dL (8.6-10.8); Carbon Dioxide 24 mEq/L (19-29); Chloride 108 mEq/L (98-109); Glucose 117 mg/dL (70-99); Osmolality,Calculated 293 (280-300); Potassium 3.9 mEq/L (3.5-4.5); Sodium 141 mEq/L (136-145); eGFR For African Americans > 60 (> 60); eGFR For Non-African Americans > 60 (> 60)
[2017-01-15] MEDS: Ipratropium/Albuterol Neb 3 ML IH SCH ×4 (04:35→22:10)
[2017-01-15] MEDS: Vancomycin 1,500 MG in D5% in Water 250 ML IVPB SCH ×2 (05:20→16:42)
[2017-01-15] MEDS: *HR* Enoxaparin 40 MG/0.4 ML SYRINGE SQ SCH (05:21)
[2017-01-15] MEDS: Loratadine 10 MG TABLET PO SCH (07:55)
[2017-01-15] MEDS: Metoprolol XL (24 HR) Succ 50 MG TAB.ER.24H PO SCH (07:56)
[2017-01-15] MEDS: amLODIPine 5 MG TABLET PO SCH (07:56)
[2017-01-15] MEDS: Aspirin Enteric Coated 81 MG Tablet PO SCH (07:56)
--- NOTE | 2017-01-15 08:15 | Pulmonology Progress Note ---
Date of Encounter: 01/15/17 Time of Encounter: 08:12 Assessment and Plan (1) Acute respiratory failure with hypoxia Current Visit: Yes Status: Acute Acute hypoxic respiratory failure secondary to pneumonia in the context of recent GI manipulation and proton pump inhibitor use possibly related to aspiration event has failed outpatient therapy. Post bronchoscopy yesterday with findings suggestive of bilateral infectious pneumonia. Continue IV antimicrobials today pending cultures Oxygen was weaned down to room air when he was sitting in bed while I was in the room today. He will need a walking pulse oximetry test prior to discharge Start Mucinex 600 mg twice a day; okay for albuterol inhaler on an as-needed basis Incentive spirometry out of bed to chair and ambulation as tolerated Chemical DVT prophylaxis while inpatient Pulmonary we will continue to follow can likely be transitioned to oral antimicrobials (pending culture results) tomorrow. (2) Pneumonia Current Visit: Yes Status: Acute Qualifiers: Pneumonia type: due to unspecified organism Laterality: bilateral Lung location: unspecified part of lung Qualified Code(s): J18.9 - Pneumonia, unspecified organism (3) DVT prophylaxis Current Visit: Yes Status: Acute Subjective Principal diagnosis: Pneumonia Interval history: No untoward effects status post bronchoscopy yesterday which was notable for bilateral purulent secretions consistent with bilateral pneumonia. Cultures negative thus far. He says that clinically he feels about the same to slightly better Objective PUL Vital signs: Last Vital Signs Temp 98.1 F 01/15/17 06:52 Pulse 77 01/15/17 06:52 Resp 18 01/15/17 06:52 BP 105/71 01/15/17 06:52 Pulse Ox 92 01/15/17 06:52 General appearance: no acute distress Auscultation: bilateral: rales (In bilateral lower lung hanna) Cardiovascular: regular rate and rhythm Gastrointestinal: normoactive bowel sounds normal mental status, non-focal exam Results - Laboratory Findings CBC and BMP: 01/15/17 03:02 01/15/17 03:02 Abnormal lab findings: Abnormal lab results RBC 4.04 M/mcL (4.19-5.50) L 01/15/17 03:02 Hgb 11.3 g/dL (12.9-16.9) L 01/15/17 03:02 Hct 36.7 % (37.5-50.1) L 01/15/17 03:02 MCHC 30.8 g/dL (31.6-35.5) L 01/15/17 03:02 Plt Count 490 K/mcL (140-400) H 01/15/17 03:02 MPV 9.2 fL (9.4-12.4) L 01/15/17 03:02 Glucose 117 mg/dL (70-99) H 01/15/17 03:02 Albumin 2.5 g/dL (3.5-5.0) L 01/14/17 03:03 Globulin 4.1 g/dL (2.4-3.5) H 01/14/17 03:03 Albumin/Globulin Ratio 0.6 (1.1-2.2) L 01/14/17 03:03 Fluid Appearance Cloudy (Clear) A 01/14/17 12:03 Vancomycin Trough 8.5 mcg/mL (10-20) L 01/15/17 03:02 - Microbiology Findings Microbiology Findings: Microbiology, Last 48 Hours 01/14/17 12:03 Respiratory Culture - Preliminary Right Lower Lobe Lung No growth. 01/14/17 13:28 Respiratory Culture - Preliminary Right Lower Lobe Lung Normal upper respiratory tract tony. No apparent pathogens isolated. 01/14/17 12:55 Sputum Culture - Final Sputum 01/13/17 17:00 Legionella Antigen - Final Urine,Clean Catch Streptococcus pneumoniae Antigen (M - Final - Clinical Findings Intake & Output: Intake & Output 01/14/17 01/15/17 01/15/17 23:59 07:59 15:59 Intake Total 590 / 590 350 / 350 Output Total 500 / 500 650 / 650 Balance 90 / 90 -300 / -300 Weight 87 kg Consult Discharge Plan - Plan Referrals: Lydia Slater, INTERMEDIATE MANAGER [Primary Care Provider] -
--- NOTE | 2017-01-15 08:56 | Internal Med Progress Note ---
Date of Encounter: 01/15/17 Time of Encounter: 08:54 - Assessment and plan (1) Acute respiratory failure with hypoxia Current Visit: Yes Status: Acute Assessment and plan: Patient failed outpatient therapy with antibiotics for pneumonia. CT scan of the chest concerning for multilobar pneumonia. The patient was evaluated by pulmonology at a bronchoscopy yesterday, bronchoscopy report noted. Will await for culture results to decide further antibiotic therapy, in the meantime we will continue with empiric antibiotic with broad spectrum coverage for healthcare associated infections. Monitor vancomycin levels. Monitor kidney function tests. Follow cultures. Incentive spirometry. Out of bed to chair. Discussed with patient in detail. (2) DVT prophylaxis Current Visit: Yes Status: Acute Assessment and plan: Continue with Lovenox. (3) BPH (benign prostatic hyperplasia) Current Visit: No Status: Chronic Qualifiers: Prostatic enlargement morphology: unspecified morphology Lower urinary tract symptom presence: symptoms present Qualified Code(s): N40.1 - Benign prostatic hyperplasia with lower urinary tract symptoms - Subjective Interval history: Patient was seen and examined in rounds. He presented with worsening shortness of breath and productive cough. Failed outpatient therapy for pneumonia. Status post bronchoscopy, feels better today. No shortness of breath. He was not getting any supplemental oxygen when I examined this patient today. - Constitutional Vitals: Temp Pulse Resp BP Pulse Ox 98.1 F 77 18 105/71 92 01/15/17 06:52 01/15/17 06:52 01/15/17 06:52 01/15/17 06:52 01/15/17 06:52 General appearance: Present: A&O X 3, no acute distress - Head Head exam: Present: atraumatic, normocephalic - Eye Eye exam: Present: PERRL, conjuntiva pink, sclera anicteric Pupils: Present: PERRL - Neck Neck exam general surgery: Present: supple, trachea midline. Absent: lymphadenopathy - Respiratory Respiratory exam: Present: decreased breath sounds. Absent: accessory muscle use, rales, rhonchi, wheezes - Cardiovascular Cardiovascular exam: Present: RRR, +S1, +S2. Absent: diastolic murmur, gallop, rubs, systolic murmur - GI/Abdominal GI/Abdominal exam: Present: normal bowel sounds, soft, no peritoneal signs. Absent: distended, tenderness - Extremities Exam Extremities exam: Present: warm, radial pulses palpable and symetrical. Absent : calf tenderness, cyanotic, pedal edema - Neurological Exam Neurological exam: Present: CN II-XII intact, oriented X3, no focal deficits. Absent: pronater drift, facial droop, speech deficit - Skin Skin exam: Present: dry, intact Internal Medicine: Result - Labs CBC & Chem 7: 01/15/17 03:02 01/15/17 03:02 Labs: Short CBC 01/15/17 Range/Units 03:02 WBC 6.9 (4.3-11.1) K/mcL Hgb 11.3 L (12.9-16.9) g/dL Hct 36.7 L (37.5-50.1) % Plt Count 490 H (140-400) K/mcL Neutrophils # 4.4 (1.6-8.9) K/mcL BMP 01/15/17 03:02 Sodium 141 Potassium 3.9 Chloride 108 Carbon Dioxide 24 BUN 13 Creatinine 0.99 Glucose 117 H Calcium 8.8 Consult Discharge Plan - Plan Referrals: Lydia Slater, WILDLIFE CONSERVATIONIST [Primary Care Provider] -
--- NOTE | 2017-01-15 09:38 | Electrocardiograph Report ---
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
[2017-01-15 19:16] LABS: Adenovirus Not Detected (Not Detect); Bordetella Pertussis Not Detected (Not Detect); Chlamydophila pneumoniae Not Detected (Not Detect); Coronavirus 229E Not Detected (Not Detect); Coronavirus HKU1 Not Detected (Not Detect); Coronavirus NL63 Not Detected (Not Detect); Coronavirus OC43 Not Detected (Not Detect); Human Metapneumovirus Not Detected (Not Detect); Human Rhinovirus/Enterovirus Not Detected (Not Detect); Influenza A Subtype 2009 H1 Not Detected (Not Detect); Influenza A Untypeable Not Detected (Not Detect); Influenza B Not Detected (Not Detect); Mycoplasma pneumoniae Not Detected (Not Detect); Parainfluenza Virus 1 Not Detected (Not Detect); Parainfluenza Virus 2 Not Detected (Not Detect); Parainfluenza Virus 3 Not Detected (Not Detect); Parainfluenza Virus 4 Not Detected (Not Detect); Respiratory Syncytial Virus Not Detected (Not Detect)
[2017-01-16] MEDS: Ipratropium/Albuterol Neb 3 ML IH SCH ×4 (04:35→23:14)
[2017-01-16 05:17] LABS: Basophils % 0.6 %; Eosinophils # 0.4 K/mcL (0.0-0.6); Eosinophils % 5.4 %; Hematocrit 36.5 % (37.5-50.1); Hemoglobin 11.3 g/dL (12.9-16.9); Immature Granulocytes % 0.9 % (0-4); Lymphocytes # 1.5 K/mcL (0.6-4.6); Mean Corpuscular Hemoglobin 28.3 pg (28.0-33.3); Mean Corpuscular Volume 91.5 fL (83.0-100.0); Mean Platelet Volume 9.2 fL (9.4-12.4); Monocytes # 0.5 K/mcL (0.0-1.3); Monocytes % 7.6 %; Neutrophils # 4.5 K/mcL (1.6-8.9); Platelet Count 465 K/mcL (140-400); Red Blood Count 3.99 M/mcL (4.19-5.50); Red Cell Distribution Width 13.5 % (11.5-14.5); Segmented Neutrophils % 64.5 %
[2017-01-16 05:32] LABS: BUN/Creatinine Ratio 12 (6-26); Blood Urea Nitrogen 13 mg/dL (8-26); Calcium 8.7 mg/dL (8.6-10.8); Carbon Dioxide 23 mEq/L (19-29); Chloride 110 mEq/L (98-109); Glucose 124 mg/dL (70-99); Osmolality,Calculated 296 (280-300); Potassium 3.9 mEq/L (3.5-4.5); Sodium 142 mEq/L (136-145); eGFR For African Americans > 60 (> 60); eGFR For Non-African Americans > 60 (> 60)
[2017-01-16] MEDS: Vancomycin 1,500 MG in D5% in Water 250 ML IVPB SCH ×2 (05:45→08:37)
[2017-01-16] MEDS: *HR* Enoxaparin 40 MG/0.4 ML SYRINGE SQ SCH (05:46)
[2017-01-16] MEDS ORDERED: Vancomycin 1,250 MG in D5% in Water 250 ML IVPB SCH (06:00)
[2017-01-16 08:04] LABS: Influenza A PCR Body Fluid NOT DETECTED; Influenza B PCR Body Fluid NOT DETECTED; RSV PCR Body Fluid NOT DETECTED
[2017-01-16] MEDS: Piperacillin/Tazobactam 3.375 GM in D5% in Water (Mini-Bag+) 100 ML IVPB SCH ×3 (08:32→15:53)
[2017-01-16] MEDS: amLODIPine 5 MG TABLET PO SCH (08:32)
[2017-01-16] MEDS: Aspirin Enteric Coated 81 MG Tablet PO SCH (08:32)
[2017-01-16] MEDS: Loratadine 10 MG TABLET PO SCH (08:32)
[2017-01-16] MEDS: Metoprolol XL (24 HR) Succ 50 MG TAB.ER.24H PO SCH (08:32)
--- NOTE | 2017-01-16 09:11 | Internal Med Progress Note ---
<Glenn Matthews - Last Filed: 01/16/17 13:19> Date of Encounter: 01/16/17 Time of Encounter: 09:11 - Assessment and plan (1) Acute respiratory failure with hypoxia Current Visit: Yes Status: Acute Assessment and plan: Patient admitted with shortness of breath, CT scan demonstrating multilobular pneumonia after evaluation by pulmonology. Patient underwent bronchoscopy on with results still pending. Prior to admission he failed 2 rounds of outpatient antibiotic therapy. Preliminary blood culture results are negative for growth, Legionella antigen is negative, respiratory culture from right lower lung base is without abnormal findings, acid-fast stain from right lower lung base is negative, sputum culture without growth, respiratory culture without growth. Symptoms improved after receiving IV Zosyn and vancomycin. - Pulmonology was consulted is on board. Plan: -Vancomycin day 3, discontinued after pulmonary recommendations. Continue with IV Zosyn. - Pulmonary recommends 8 days of IV Zosyn. (2) BPH (benign prostatic hyperplasia) Current Visit: No Status: Chronic Assessment and plan: Patient has BPH with lower urinary tract symptoms. Plan: -Continue Flomax 0.4 mg by mouth daily Qualifiers: Prostatic enlargement morphology: unspecified morphology Lower urinary tract symptom presence: symptoms present Qualified Code(s): N40.1 - Benign prostatic hyperplasia with lower urinary tract symptoms (3) CAD (coronary artery disease) Current Visit: No Status: Chronic Assessment and plan: Continue optimal therapy with atorvastatin 80 mg by mouth twice a day, Toprol- XL 50 mg by mouth daily, aspirin 81 mg by mouth daily. Qualifiers: Coronary Disease-Associated Artery/Lesion type: [place] artery [place] vs. transplanted heart: [place] heart Associated angina: without angina Qualified Code(s): I25.10 - Atherosclerotic heart disease of [place] coronary artery without angina pectoris (4) DVT prophylaxis Current Visit: Yes Status: Acute Assessment and plan: Lovenox 40 mg subcutaneous daily - Subjective Interval history: 66-year-old male has been seen and evaluated patient bedside this morning. He is alert awake and or active in no acute distress sitting up at the side of the bed. He says that he is feeling much better after starting IV antibiotics and is able to ambulate in the hallways without nasal cannula oxygen. He feels that his shortness of breath has almost completely resolved and he does not have a productive cough. He denies any chest pain, chest pressure, productive sputum, fevers chills or sweating, abdominal pain nausea vomiting diarrhea constipation or any swelling in his extremities. - Constitutional Vitals: Temp Pulse Resp BP Pulse Ox 97.9 F 95 18 117/76 91 01/16/17 07:05 01/16/17 07:05 01/16/17 07:05 01/16/17 07:05 01/16/17 07:05 General appearance: Present: A&O X 3, no acute distress Exam: General: Patient alert, awake, oriented 3, interactive, in no acute distress HEENT: Normocephalic, atraumatic, pupils equal reactive to light, nasal cavity pain and open septum median position, oral mucosa moist, uvula midline, neck supple trachea midline no palpable lymphadenopathy, no thyromegaly. Chest: Symmetric bilateral correlating with respiratory effort, effort nonlabored. Cardiac: Regular rate and rhythm, positive S1, S2, no bruits appreciated bilateral carotids, Radial pulses 2+ bilateral, posterior tibial and dorsal pedal pulses 2+ bilateral. Respiratory: Bilateral crackles in lung bases. Clear to auscultation all other lung hanna. Abdomen: Soft, nontender, positive bowel sounds, no palpable masses appreciated on examination Extremities: Symmetric bilateral, no erythema or edema, patient moving all 4 extremities spontaneously. Neurologic: No focal deficits appreciated on examination. Face symmetric, muscle strength symmetric bilateral upper and lower extremities. Internal Medicine: Result - Labs CBC & Chem 7: 01/16/17 03:50 01/16/17 03:50 Labs: Short CBC 01/16/17 Range/Units 03:50 WBC 7.0 (4.3-11.1) K/mcL Hgb 11.3 L (12.9-16.9) g/dL Hct 36.5 L (37.5-50.1) % Plt Count 465 H (140-400) K/mcL Neutrophils # 4.5 (1.6-8.9) K/mcL BMP 01/16/17 03:50 Sodium 142 Potassium 3.9 Chloride 110 H Carbon Dioxide 23 BUN 13 Creatinine 1.05 Glucose 124 H Calcium 8.7 Consult Discharge Plan - Plan Referrals: Lydia Slater, PATIENT SCHEDULING MANAGER [Primary Care Provider] - Prescriptions: Mynwljfeirsa-Chfx-Pomvxocf,Iso [Zosyn 3.375 gm/50 ml Galaxy] 3.375 gm IV Q8H 5 Days <Nav Villegas - Last Filed: 01/16/17 15:04> Date of Encounter: 01/16/17 - Assessment and plan (1) Acute respiratory failure with hypoxia Current Visit: Yes Status: Acute (2) DVT prophylaxis Current Visit: Yes Status: Acute (3) BPH (benign prostatic hyperplasia) Current Visit: No Status: Chronic Qualifiers: Prostatic enlargement morphology: unspecified morphology Lower urinary tract symptom presence: symptoms present Qualified Code(s): N40.1 - Benign prostatic hyperplasia with lower urinary tract symptoms - Constitutional Vitals: Temp Pulse Resp BP Pulse Ox 97.8 F 102 20 123/76 94 01/16/17 12:08 01/16/17 12:08 01/16/17 12:08 01/16/17 12:08 01/16/17 12:08 Internal Medicine: Result - Labs CBC & Chem 7: 01/16/17 03:50 01/16/17 03:50 Labs: Short CBC 01/16/17 Range/Units 03:50 WBC 7.0 (4.3-11.1) K/mcL Hgb 11.3 L (12.9-16.9) g/dL Hct 36.5 L (37.5-50.1) % Plt Count 465 H (140-400) K/mcL Neutrophils # 4.5 (1.6-8.9) K/mcL BMP 01/16/17 03:50 Sodium 142 Potassium 3.9 Chloride 110 H Carbon Dioxide 23 BUN 13 Creatinine 1.05 Glucose 124 H Calcium 8.7 - Attending Attestation I examined this patient and my medical decision-making was reviewed with the SLUDGE MILL OPERATOR/PA/Advanced Practice Nurse/Resident Physician. I agree with the documented findings, disposition and treatment plan as described except to the extent set forth below. Continue with zosyn, director of social work consult for iv antibiotics at home. agree with resident.
--- NOTE | 2017-01-16 10:42 | Pulmonology Progress Note ---
<Benny Mireles - Last Filed: 01/16/17 12:44> Date of Encounter: 01/16/17 Time of Encounter: 10:40 Assessment and Plan (1) Acute respiratory failure with hypoxia Current Visit: Yes Status: Acute 66 y/o M admitted for multifocal pneumonia seen of CT Chest. s/p bronchoscopy with findings of b/l pneumonia. Failed outpatient therapy of amoxicillin and levaquin. 2nd to bacterial pneumonia Patient weaned off of O2. 6min walk test completed: did not qualify for O2. WBC WNL, afebrile Lung exam: ronchi and rales on lower lobes b/l with diminished lung sounds on b /l upper lobes BAL cultures negative, sputum cultures negative, preliminary blood cultures negative Vanc day 3, zosyn day 3, -d/c vanc -continue zosyn for 8 days continue mucinex (2) Pneumonia Current Visit: Yes Status: Acute Qualifiers: Pneumonia type: due to unspecified organism Laterality: bilateral Lung location: unspecified part of lung Qualified Code(s): J18.9 - Pneumonia, unspecified organism (3) DVT prophylaxis Current Visit: Yes Status: Acute continue lovenox Subjective Principal diagnosis: Pneumonia Interval history: Patient states his sob has improved since admission. He is not on O2 anymore. Had 6min walk test and did not qualify for oxygen. States he had non productive cough, chest congestion. Objective PUL Vital signs: Last Vital Signs Temp 97.9 F 01/16/17 07:05 Pulse 95 01/16/17 07:05 Resp 18 01/16/17 07:05 BP 117/76 01/16/17 07:05 Pulse Ox 93 01/16/17 10:04 General appearance: no acute distress, alert Effort: normal Auscultation: left: rales (left lower lobe), right: rhonchi (right lower lobe), bilateral: diminished breath sounds (upper lobes) Cardiovascular: regular rate and rhythm Gastrointestinal: normoactive bowel sounds, non-distended Extremities: no cyanosis, no edema, no clubbing Results - Laboratory Findings CBC and BMP: 01/16/17 03:50 01/16/17 03:50 Abnormal lab findings: Abnormal lab results RBC 3.99 M/mcL (4.19-5.50) L 01/16/17 03:50 Hgb 11.3 g/dL (12.9-16.9) L 01/16/17 03:50 Hct 36.5 % (37.5-50.1) L 01/16/17 03:50 MCHC 31.0 g/dL (31.6-35.5) L 01/16/17 03:50 Plt Count 465 K/mcL (140-400) H 01/16/17 03:50 MPV 9.2 fL (9.4-12.4) L 01/16/17 03:50 Chloride 110 mEq/L (98-109) H 01/16/17 03:50 Glucose 124 mg/dL (70-99) H 01/16/17 03:50 Albumin 2.5 g/dL (3.5-5.0) L 01/14/17 03:03 Globulin 4.1 g/dL (2.4-3.5) H 01/14/17 03:03 Albumin/Globulin Ratio 0.6 (1.1-2.2) L 01/14/17 03:03 Fluid Appearance Cloudy (Clear) A 01/14/17 12:03 - Microbiology Findings Microbiology Findings: Microbiology, Last 48 Hours 01/14/17 12:03 Acid Fast Stain - Final Right Lower Lobe Lung 01/14/17 12:03 Gram Stain - Final Right Lower Lobe Lung Respiratory Culture - Final Normal upper respiratory tract tony. No apparent pathogens isolated. 01/14/17 13:28 Respiratory Culture - Final Right Lower Lobe Lung No growth. 01/14/17 12:55 Sputum Culture - Final Sputum - Clinical Findings Intake & Output: Intake & Output 01/15/17 01/16/17 01/16/17 23:59 07:59 15:59 Intake Total 260 / 260 850 / 850 1200 / 1200 Output Total 350 / 350 375 / 375 Balance -90 / -90 475 / 475 1200 / 1200 Weight 88.2 kg Consult Discharge Plan - Plan Referrals: Lydia Slater, PUBLIC ADDRESS SERVICER [Primary Care Provider] - Prescriptions: Piperacillin/Tazobactam [Zosyn] 3.375 gm IVPB Q8HR 5 Days Spdyuijwjihk-Ravj-Cubwpakw,Iso [Zosyn 3.375 gm/50 ml Galaxy] 3.375 gm IV Q8H 5 Days <Danya Luevano - Last Filed: 01/16/17 17:16> Date of Encounter: 01/16/17 Objective PUL Vital signs: Last Vital Signs Temp 97.8 F 01/16/17 16:07 Pulse 86 01/16/17 16:07 Resp 18 01/16/17 16:29 BP 120/76 01/16/17 16:07 Pulse Ox 93 01/16/17 16:29 Results - Laboratory Findings CBC and BMP: 01/16/17 03:50 01/16/17 03:50 Abnormal lab findings: Abnormal lab results RBC 3.99 M/mcL (4.19-5.50) L 01/16/17 03:50 Hgb 11.3 g/dL (12.9-16.9) L 01/16/17 03:50 Hct 36.5 % (37.5-50.1) L 01/16/17 03:50 MCHC 31.0 g/dL (31.6-35.5) L 01/16/17 03:50 Plt Count 465 K/mcL (140-400) H 01/16/17 03:50 MPV 9.2 fL (9.4-12.4) L 01/16/17 03:50 Chloride 110 mEq/L (98-109) H 01/16/17 03:50 Glucose 124 mg/dL (70-99) H 01/16/17 03:50 Albumin 2.5 g/dL (3.5-5.0) L 01/14/17 03:03 Globulin 4.1 g/dL (2.4-3.5) H 01/14/17 03:03 Albumin/Globulin Ratio 0.6 (1.1-2.2) L 01/14/17 03:03 Fluid Appearance Cloudy (Clear) A 01/14/17 12:03 - Microbiology Findings Microbiology Findings: Microbiology, Last 48 Hours 01/14/17 12:03 Acid Fast Stain - Final Right Lower Lobe Lung 01/14/17 12:03 Gram Stain - Final Right Lower Lobe Lung Respiratory Culture - Final Normal upper respiratory tract tony. No apparent pathogens isolated. 01/14/17 13:28 Respiratory Culture - Final Right Lower Lobe Lung No growth. 01/14/17 12:55 Sputum Culture - Final Sputum - Clinical Findings Intake & Output: Intake & Output 01/16/17 01/16/17 01/16/17 07:59 15:59 23:59 Intake Total 850 / 850 1660 / 1660 Output Total 375 / 375 300 / 300 Balance 475 / 475 1360 / 1360 Weight 88.2 kg - Attending Attestation I examined this patient and my medical decision-making was reviewed with the NAIL EXPERT/PA/Advanced Practice Nurse/Resident Physician. I agree with the documented findings, disposition and treatment plan as described except to the extent set forth below. Patient seen and examined. Labs, radiology, chart personally reviewed. Agree with resident's history and physical, assessment, plan with following comments: SPANISH MEDICAL INTERPRETER: Patient follows commands, Pulmonary: Acceptable oxygenation and ventilation. Patient is anxious about treatment as outpatient and he will not be able to do routine self or with the family. A total course of 8 days of intravenous antibiotics is reasonable since he was already on antibiotics prior to that. He will need a follow-up CT chest as outpatient in 2-3 months. Cardiovascular: stable Please call for any questions
[2017-01-16] MEDS ORDERED: Aminoglycoside Consult 1 EACH MC ONE (16:55)
[2017-01-17] MEDS: Piperacillin/Tazobactam 3.375 GM in D5% in Water (Mini-Bag+) 100 ML IVPB SCH ×3 (00:34→15:40)
[2017-01-17] MEDS: Ipratropium/Albuterol Neb 3 ML IH SCH ×3 (04:22→16:08)
[2017-01-17 05:12] LABS: Basophils % 0.3 %; Eosinophils # 0.4 K/mcL (0.0-0.6); Hematocrit 36.8 % (37.5-50.1); Hemoglobin 11.9 g/dL (12.9-16.9); Immature Granulocytes % 0.6 % (0-4); Lymphocytes % 28.9 %; Mean Corpuscular HGB Conc 32.3 g/dL (31.6-35.5); Mean Corpuscular Hemoglobin 29.2 pg (28.0-33.3); Mean Corpuscular Volume 90.2 fL (83.0-100.0); Mean Platelet Volume 9.3 fL (9.4-12.4); Monocytes # 0.5 K/mcL (0.0-1.3); Monocytes % 7.1 %; Neutrophils # 4.1 K/mcL (1.6-8.9); Platelet Count 438 K/mcL (140-400); Red Blood Count 4.08 M/mcL (4.19-5.50); Red Cell Distribution Width 13.6 % (11.5-14.5); Segmented Neutrophils % 58.1 %
[2017-01-17 05:25] LABS: BUN/Creatinine Ratio 10 (6-26); Blood Urea Nitrogen 10 mg/dL (8-26); Calcium 8.9 mg/dL (8.6-10.8); Carbon Dioxide 25 mEq/L (19-29); Chloride 110 mEq/L (98-109); Glucose 118 mg/dL (70-99); Osmolality,Calculated 298 (280-300); Potassium 3.8 mEq/L (3.5-4.5); Sodium 144 mEq/L (136-145); eGFR For African Americans > 60 (> 60); eGFR For Non-African Americans > 60 (> 60)
[2017-01-17] MEDS: *HR* Enoxaparin 40 MG/0.4 ML SYRINGE SQ SCH (05:44)
[2017-01-17] MEDS: Metoprolol XL (24 HR) Succ 50 MG TAB.ER.24H PO SCH (09:28)
[2017-01-17] MEDS: Loratadine 10 MG TABLET PO SCH (09:28)
[2017-01-17] MEDS: amLODIPine 5 MG TABLET PO SCH (09:28)
[2017-01-17] MEDS: Aspirin Enteric Coated 81 MG Tablet PO SCH (09:28)
--- NOTE | 2017-01-17 11:09 | Pulmonology Progress Note ---
<Benny Mireles - Last Filed: 01/17/17 14:20> Date of Encounter: 01/17/17 Time of Encounter: 11:07 Assessment and Plan (1) Acute respiratory failure with hypoxia Status: Resolved 66 y/o M admitted for multifocal pneumonia seen of CT Chest. s/p bronchoscopy with findings of b/l pneumonia. Failed outpatient therapy of amoxicillin and levaquin. 2nd to bacterial pneumonia 6min walk test completed: did not qualify for O2. WBC WNL, afebrile Lung exam: ronchi and rales on lower lobes b/l with diminished lung sounds on b /l upper lobes BAL cultures negative, sputum cultures negative, preliminary blood cultures negative -continue zosyn for 8 days Patient shortness of breath is improved tremendously. He is off supplemental oxygen. Will need [facility] and home health set up for outpatient infusion of antibiotics. Follow-up with pulmonology outpatient in a week. (2) Pneumonia Status: Acute Plan as above. Qualifiers: Pneumonia type: due to unspecified organism Laterality: bilateral Lung location: lower lobe of lung Qualified Code(s): J18.9 - Pneumonia, unspecified organism (3) DVT prophylaxis Status: Acute continue lovenox Subjective Principal diagnosis: Pneumonia Interval history: Patient states his sob has improved since admission. Denies any problems overnight. Objective PUL Vital signs: Last Vital Signs Temp 98.0 F 01/17/17 07:58 Pulse 86 01/17/17 07:58 Resp 20 01/17/17 07:58 BP 124/80 01/17/17 07:58 Pulse Ox 94 01/17/17 07:58 General appearance: no acute distress Eyes: nonicteric ENT: oropharynx moist Neck: supple Effort: normal Auscultation: bilateral: rales (Lower lobes bilaterally) Cardiovascular: regular rate and rhythm Gastrointestinal: normoactive bowel sounds, non-distended Integumentary: normal Extremities: no cyanosis, no edema, no clubbing Musculoskeletal: no deformities, ROM normal normal mental status, non-focal exam mood appropriate, affect normal Results - Laboratory Findings CBC and BMP: 01/17/17 04:58 01/17/17 04:58 Abnormal lab findings: Abnormal lab results RBC 4.08 M/mcL (4.19-5.50) L 01/17/17 04:58 Hgb 11.9 g/dL (12.9-16.9) L 01/17/17 04:58 Hct 36.8 % (37.5-50.1) L 01/17/17 04:58 Plt Count 438 K/mcL (140-400) H 01/17/17 04:58 MPV 9.3 fL (9.4-12.4) L 01/17/17 04:58 Chloride 110 mEq/L (98-109) H 01/17/17 04:58 Glucose 118 mg/dL (70-99) H 01/17/17 04:58 Albumin 2.5 g/dL (3.5-5.0) L 01/14/17 03:03 Globulin 4.1 g/dL (2.4-3.5) H 01/14/17 03:03 Albumin/Globulin Ratio 0.6 (1.1-2.2) L 01/14/17 03:03 Fluid Appearance Cloudy (Clear) A 01/14/17 12:03 - Microbiology Findings Microbiology Findings: Microbiology, Last 48 Hours 01/14/17 12:03 Acid Fast Stain - Final Right Lower Lobe Lung 01/14/17 12:03 Gram Stain - Final Right Lower Lobe Lung Respiratory Culture - Final Normal upper respiratory tract tony. No apparent pathogens isolated. 01/14/17 13:28 Respiratory Culture - Final Right Lower Lobe Lung No growth. - Clinical Findings Intake & Output: Intake & Output 01/16/17 01/17/17 01/17/17 23:59 07:59 15:59 Intake Total 700 / 700 600 / 600 240 / 240 Output Total 0 / 0 325 / 325 Balance 700 / 700 275 / 275 240 / 240 Consult Discharge Plan - Plan Referrals: Danya Luevano MD [Partnered Physician] - (web request - office will call with appointment time) Lydia Slater, ISAMAR [Primary Care Provider] - 01/26/17 2:00 pm Prescriptions: Piperacillin/Tazobactam [Zosyn] 3.375 gm IVPB Q8HR 5 Days Srynlzhsrjci-Zmzt-Mdwfgmac,Iso [Zosyn 3.375 gm/50 ml Galaxy] 3.375 gm IV Q8H 5 Days <Danya Luevano - Last Filed: 01/17/17 18:01> Date of Encounter: 01/17/17 Objective PUL Vital signs: Last Vital Signs Temp 98.0 F 01/17/17 12:33 Pulse 83 01/17/17 12:33 Resp 18 01/17/17 12:33 BP 122/75 01/17/17 12:33 Pulse Ox 94 01/17/17 12:33 Results - Laboratory Findings CBC and BMP: 01/17/17 04:58 01/17/17 04:58 Abnormal lab findings: Abnormal lab results RBC 4.08 M/mcL (4.19-5.50) L 01/17/17 04:58 Hgb 11.9 g/dL (12.9-16.9) L 01/17/17 04:58 Hct 36.8 % (37.5-50.1) L 01/17/17 04:58 Plt Count 438 K/mcL (140-400) H 01/17/17 04:58 MPV 9.3 fL (9.4-12.4) L 01/17/17 04:58 Chloride 110 mEq/L (98-109) H 01/17/17 04:58 Glucose 118 mg/dL (70-99) H 01/17/17 04:58 Albumin 2.5 g/dL (3.5-5.0) L 01/14/17 03:03 Globulin 4.1 g/dL (2.4-3.5) H 01/14/17 03:03 Albumin/Globulin Ratio 0.6 (1.1-2.2) L 01/14/17 03:03 Fluid Appearance Cloudy (Clear) A 01/14/17 12:03 - Microbiology Findings Microbiology Findings: Microbiology, Last 48 Hours 01/14/17 12:03 Acid Fast Stain - Final Right Lower Lobe Lung 01/14/17 12:03 Gram Stain - Final Right Lower Lobe Lung Respiratory Culture - Final Normal upper respiratory tract tony. No apparent pathogens isolated. 01/14/17 13:28 Respiratory Culture - Final Right Lower Lobe Lung No growth. - Clinical Findings Intake & Output: Intake & Output 01/17/17 01/17/17 01/17/17 07:59 15:59 23:59 Intake Total 600 / 600 340 / 340 Output Total 325 / 325 Balance 275 / 275 340 / 340 - Attending Attestation I examined this patient and my medical decision-making was reviewed with the MICROFILMING DOCUMENT PREPARER/PA/Advanced Practice Nurse/Resident Physician. I agree with the documented findings, disposition and treatment plan as described except to the extent set forth below. Patient seen and examined. Labs, radiology, chart personally reviewed. Agree with resident's history and physical, assessment, plan with following comments: Patient to follow-up with outpatient clinic and he will need follow-up CT chest to ensure his pneumonia has resolved.
[2017-01-17 12:34] VITALS: BP 122/75
--- NOTE | 2017-01-17 14:32 | Internal Med Progress Note ---
Date of Encounter: 01/17/17 Time of Encounter: 14:30 - Time Spent With Patient 25 - 35 minutes - Subjective Interval history: Patient is doing well. He was admitted for pneumonia. 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 He is advised not to smoke any further. He will take IV antibiotic for a few more days and after that he will be switched to oral antibiotics. She wants to go home - Constitutional Vitals: Temp Pulse Resp BP Pulse Ox 98.0 F 83 18 122/75 94 01/17/17 12:33 01/17/17 12:33 01/17/17 12:33 01/17/17 12:33 01/17/17 12:33 General appearance: Present: A&O X 3, no acute distress - Head Head exam: Present: atraumatic, normocephalic - Neck Neck exam general surgery: Present: supple, trachea midline. Absent: lymphadenopathy - Respiratory Respiratory exam: Present: CTAB. Absent: accessory muscle use, rales, rhonchi, wheezes - Cardiovascular Cardiovascular exam: Present: RRR, +S1, +S2. Absent: diastolic murmur, gallop, rubs, systolic murmur - GI/Abdominal GI/Abdominal exam: Present: normal bowel sounds, soft, no peritoneal signs. Absent: distended, tenderness - Extremities Exam Extremities exam: Present: warm, radial pulses palpable and symetrical. Absent : calf tenderness, cyanotic, pedal edema - Neurological Exam Neurological exam: Present: CN II-XII intact, oriented X3, no focal deficits. Absent: pronater drift, facial droop, speech deficit Internal Medicine: Result - Labs CBC & Chem 7: 01/17/17 04:58 01/17/17 04:58 Labs: Short CBC 01/17/17 Range/Units 04:58 WBC 7.0 (4.3-11.1) K/mcL Hgb 11.9 L (12.9-16.9) g/dL Hct 36.8 L (37.5-50.1) % Plt Count 438 H (140-400) K/mcL Neutrophils # 4.1 (1.6-8.9) K/mcL BMP 01/17/17 04:58 Sodium 144 Potassium 3.8 Chloride 110 H Carbon Dioxide 25 BUN 10 Creatinine 1.01 Glucose 118 H Calcium 8.9 Consult Discharge Plan - Plan Referrals: Danya Luevano MD [Partnered Physician] - Lydia Slater CNP [Primary Care Provider] - Prescriptions: Piperacillin/Tazobactam [Zosyn] 3.375 gm IVPB Q8HR 5 Days Qkrekstndgoo-Jgya-Lugxssqy,Iso [Zosyn 3.375 gm/50 ml Galaxy] 3.375 gm IV Q8H 5 Days
--- NOTE | 2017-01-17 14:45 | Discharge Summary ---
Date of Encounter: 01/17/17 Time of Encounter: 14:43 - Discharge Diagnosis (1) UTI (urinary tract infection) Priority: Secondary Status: Acute Comments: Culture negative patient has history of BPH Qualifiers: Urinary tract infection type: site unspecified Hematuria presence: without hematuria Qualified Code(s): N39.0 - Urinary tract infection, site not specified (2) BPH (benign prostatic hyperplasia) Priority: Secondary Status: Chronic Qualifiers: Prostatic enlargement morphology: unspecified morphology Lower urinary tract symptom presence: symptoms present Qualified Code(s): N40.1 - Benign prostatic hyperplasia with lower urinary tract symptoms (3) Pneumonia Priority: Primary Status: Acute Qualifiers: Pneumonia type: due to unspecified organism Laterality: bilateral Lung location: lower lobe of lung Qualified Code(s): J18.9 - Pneumonia, unspecified organism (4) DVT prophylaxis Priority: Secondary Status: Acute - Discharge Medications Prescriptions: Piperacillin/Tazobactam [Zosyn] 3.375 gm IVPB Q8HR 5 Days Ektgsugqhosi-Kwuh-Yfpimoec,Iso [Zosyn 3.375 gm/50 ml Galaxy] 3.375 gm IV Q8H 5 Days Home Medications: Tamsulosin HCl [Flomax] 0.4 mg PO DAILY #14 cap.er.24h 11/05/16 [Rx] Aspirin [Lo-Dose Aspirin EC] 81 mg PO DAILY 11/15/16 [History] Loratadine [Allergy Relief] 10 mg PO DAILY 11/15/16 [History] Metoprolol XL (24 HR) Succ [Toprol Xl] 50 mg PO DAILY 11/15/16 [History] Nitroglycerin [Nitrostat] 0.4 mg SL AD PRN 11/15/16 [History] amLODIPine [Norvasc] 5 mg PO DAILY 11/15/16 [History] Omeprazole [PriLOSEC] 20 mg PO BIDAC #60 cap 11/18/16 [Rx] Albuterol Sulfate [Proair Hfa] 2 puff IH Q4-6H PRN 01/13/17 [History] Atorvastatin Calcium [Lipitor] 80 mg PO DAILY 01/13/17 [History] Krvgcyvscnrm-Xrbe-Ccaocarg,Iso [Zosyn 3.375 gm/50 ml Galaxy] 3.375 gm IV Q8H 5 Days 01/16/17 [Rx] Piperacillin/Tazobactam [Zosyn] 3.375 gm IVPB Q8HR 5 Days 01/16/17 [Rx] Acetaminophen [Tylenol] 650 mg PO Q6HR PRN #0 tablet 01/17/17 [Rx] Allergies/Adverse Reactions: Allergies No Known Allergies Allergy (Verified 01/13/17 14:53) Date of admission: 01/13/17 15:47 Primary care physician: Lydia Slater CNP Consults: 01/14/17 07:33 Consult to Pulmonology [CONS] Routine Consulting Provider: [facility] Reason for Consult: bronchoscopy Call Completed: Yes 01/16/17 13:28 Consult to Oceanography Professor [CONS] Routine Reason for SW Consult: might need iv antibiotics 01/17/17 10:16 Consult to Invasive Line Access Team [CONS] Routine Reason for Consult: shelter IV antibiotics Line Type: EPIV Discharging clinician: Kellen Emery Anticipated date of discharge: 01/17/17 - Patient Status Disposition: Home, Self-Care Condition: Fair - Discharge Instructions Follow Up With: Danya Luevano MD [Partnered Physician] - Lydia Slater CNP [Primary Care Provider] - Hospital course: Mr. Skinner is a 66 year old male admitted with pneumonia. Apparently he failed outpatient oral antibiotic treatment twice and it was decided to treat him with IV Zosyn for 10 days. In breathing has improved fever has resolved and white counts have improved. He will be discharged home with his family. He will continue to have IV Zosyn for 5 more days after which 5 days of oral antibiotic treatment. - Time Spent with Patient Total time spent providing and/or coordinating discharge services: Greater than 30 minutes - Constitutional Vitals: Temp Pulse Resp BP Pulse Ox 98.0 F 83 18 122/75 94 01/17/17 12:33 01/17/17 12:33 01/17/17 12:33 01/17/17 12:33 01/17/17 12:33 General appearance: Present: A&O X 3, no acute distress - Head Head exam: Present: atraumatic, normocephalic - Eye Eye exam: Present: PERRL, conjuntiva pink, sclera anicteric Pupils: Present: PERRL - Neck Neck exam general surgery: Present: supple, trachea midline. Absent: lymphadenopathy - Respiratory Respiratory exam: Present: CTAB. Absent: accessory muscle use, rales, rhonchi, wheezes - Cardiovascular Cardiovascular exam: Present: RRR, +S1, +S2. Absent: diastolic murmur, gallop, rubs, systolic murmur - GI/Abdominal GI/Abdominal exam: Present: normal bowel sounds, soft, no peritoneal signs. Absent: distended, tenderness - Extremities Exam Extremities exam: Present: warm, radial pulses palpable and symetrical. Absent : calf tenderness, cyanotic, pedal edema - Neurological Exam Neurological exam: Present: CN II-XII intact, oriented X3, no focal deficits. Absent: pronater drift, facial droop, speech deficit - Skin Skin exam: Present: dry, intact
--- NOTE | 2017-01-17 19:03 | Physician Discharge Referral ---
Home Health/Hosp Referral Info Transfer to: Home Health Attending Provider: milad Provider in Charge Post Discharge: PCP (Cat Slater is a primary care) - Diagnosis (1) UTI (urinary tract infection) Status: Acute (2) BPH (benign prostatic hyperplasia) Status: Chronic (3) Pneumonia Status: Acute (4) DVT prophylaxis Status: Acute - Respiratory Orders Smoking Cessation: Smoking cessation has been advised. For more information, call the [place] Tobacco Quit Line at 7-167-GXIO-NOW. - Transfer Medications Prescriptions: Piperacillin/Tazobactam [Zosyn] 3.375 gm IVPB Q8HR 5 Days Lvnkullrebng-Epvx-Fzibvlih,Iso [Zosyn 3.375 gm/50 ml Galaxy] 3.375 gm IV Q8H 5 Days Home Medications: Tamsulosin HCl [Flomax] 0.4 mg PO DAILY #14 cap.er.24h 11/05/16 [Rx] Aspirin [Lo-Dose Aspirin EC] 81 mg PO DAILY 11/15/16 [History] Loratadine [Allergy Relief] 10 mg PO DAILY 11/15/16 [History] Metoprolol XL (24 HR) Succ [Toprol Xl] 50 mg PO DAILY 11/15/16 [History] Nitroglycerin [Nitrostat] 0.4 mg SL AD PRN 11/15/16 [History] amLODIPine [Norvasc] 5 mg PO DAILY 11/15/16 [History] Omeprazole [PriLOSEC] 20 mg PO BIDAC #60 cap 11/18/16 [Rx] Albuterol Sulfate [Proair Hfa] 2 puff IH Q4-6H PRN 01/13/17 [History] Atorvastatin Calcium [Lipitor] 80 mg PO DAILY 01/13/17 [History] Qydypyupnezk-Xibp-Vvwzbszp,Iso [Zosyn 3.375 gm/50 ml Galaxy] 3.375 gm IV Q8H 5 Days 01/16/17 [Rx] Piperacillin/Tazobactam [Zosyn] 3.375 gm IVPB Q8HR 5 Days 01/16/17 [Rx] Acetaminophen [Tylenol] 650 mg PO Q6HR PRN #0 tablet 01/17/17 [Rx] Allergies/Adverse Reactions: Allergies No Known Allergies Allergy (Verified 01/13/17 14:53) Certification: Further, I certify that my clinical findings support that this patient is homebound (i.e. absences from home require considerable and taxing effort and are for medical reasons or episcopalian services or infrequently or short duration when for other reasons) because: Homebound Reason: Patient requires assistance of a person or device to safely leave home, Leaving home requires considerable and taxing effort due to condition (Need IV medication 3 times a day) Attestation: My signature below is to certify that this patient is under my care and that I, or nurse practitioner, or a physician's research assistant working with me, has a face-to -face encounter with this patient.
[2017-01-19 11:26] LABS: Influenza A PCR Body Fluid NOT DETECTED; Influenza B PCR Body Fluid NOT DETECTED; RSV PCR Body Fluid NOT DETECTED
== END 2017-01-17 16:56 | disposition home health service (06) | DRG 166 ==
LOC: EMEROO 12:55 → 3ANU 12:55 → SUATTDRO 15:47
PROVIDERS: ADMIT Internal Medicine; ATTEND Internal Medicine

== ENCOUNTER 2018-02-07 04:20 | Observation (INO) ==
[2018-02-07] MEDS ORDERED: Aspirin 81 MG TAB.CHEW PO ONE (04:23)
--- NOTE | 2018-02-07 04:33 | Emergency Department Note ---
Disposition Clinical Impression: Chest pain Qualifiers: Chest pain type: unspecified Qualified Code(s): R07.9 - Chest pain, unspecified Disposition: Admitted As Inpatient Condition: Good Instructions: Chest Pain (ED) Referrals: Lydia Slater CNP [Primary Care Provider] - Forms: ED Satisfaction Letter Time of Disposition: 06:02 Chest Pain HPI - General Chief Complaint: ED Chest Pain Stated Complaint: Chest Pain Time Seen by Provider: 02/07/18 04:23 Source: patient Limitations: no limitations Vital Signs Reviewed: Yes Nursing Notes Reviewed: Yes - History of Present Illness HPI Narrative: Mr. Skinner is a pleasant 67-year-old male with a history of one stent placed several years ago. He presents the emergency room with retrosternal chest pain that awoke him from sleep at roughly 4 AM on 02/07/2018. Taken off Plavix because he had been on it too long but does not remember what he is currently anticoagulated with.. He has a history of hypertension. He denies Viagra use in the last 72 hours. 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: 04:00 Duration: gradually worsening Onset: awoke with symptoms Pain Location: substernal Severity scale (1-10): 6 Improves with: nothing - Related Data Home Medications Medication Instructions Recorded Confirmed Aspirin [Lo-Dose Aspirin EC] 81 mg PO DAILY 11/15/16 01/13/17 Loratadine [Allergy Relief] 10 mg PO DAILY 11/15/16 01/13/17 Metoprolol XL (24 HR) Succ [Toprol 50 mg PO DAILY 11/15/16 01/13/17 Xl] Nitroglycerin [Nitrostat] 0.4 mg SL AD PRN 11/15/16 01/13/17 amLODIPine [Norvasc] 5 mg PO DAILY 11/15/16 01/13/17 Albuterol Sulfate [Proair Hfa] 2 puff IH Q4-6H PRN 01/13/17 01/13/17 Atorvastatin Calcium [Lipitor] 80 mg PO DAILY 01/13/17 01/13/17 Previous Rx's Medication Instructions Recorded Tamsulosin HCl [Flomax] 0.4 mg PO DAILY #14 cap.er.24h 11/05/16 Omeprazole [PriLOSEC] 20 mg PO BIDAC #60 cap 11/18/16 Efcjjgrydulj-Pavx-Oreonvbc,Iso 3.375 gm IV Q8H 5 Days froz.piggy 01/16/17 [Zosyn 3.375 gm/50 ml Galaxy] Piperacillin/Tazobactam [Zosyn] 3.375 gm IVPB Q8HR 5 Days vial 01/16/17 Acetaminophen [Tylenol] 650 mg PO Q6HR PRN #0 tablet 01/17/17 Allergies Allergy/AdvReac Type Severity Reaction Status Date / Time No Known Allergies Allergy Verified 02/07/18 04:21 All systems ED: reviewed and negative except as stated. Review of Systems: As Per HPI Constitutional: Reports: as per HPI Eyes: Reports: as per HPI ENT ED: Reports: as per HPI Cardiovascular: Reports: as per HPI, chest pain. Denies: palpitations, orthopnea Respiratory: Reports: as per HPI Gastrointestinal: Reports: as per HPI Genitourinary: Reports: as per HPI Chest Pain PMH - Past Medical History Medical history: Reports: hypertension, myocardial infarction Surgical history: Reports: angioplasty/stent Psychiatric history: Reports: no psych history - Social History Smoking Status: Never smoker Alcohol use: Reports: none Drug use: Reports: none Physical Exam - General Limitations: no limitations General appearance: alert, in no apparent distress - ENT ENT exam: normal exam - Neck Neck exam: Present: normal inspection - Respiratory Respiratory exam: Present: normal lung sounds bilaterally - Cardiovascular Cardiovascular exam: Present: regular rate, normal rhythm - Abdominal Exam Abdominal exam: Present: soft, Non-Tender Course Course Narrative: 05:08 - Pt notes that his chest pain is still a 3/10 following 3 SL Nitroglycerin. 0.5 inch nitro paste ordered. 325 mg Aspirin administered in the ED. 05:40 - patient notes that his pain is still continues to be slightly relieved however states his pain is still there. Nitro drip ordered starting at a rate of 5 g 05:55 - Pt was accepted to hospital / medicine by Dr. Sue. Due to heavy volume this evening, Dr. Sue requested that he be evaluated by the 0700 am shift change doc. He requested a soda room operator which is already in place in the ED. Vital Signs Temperature 97.9 F 02/07/18 04:24 Pulse Rate 71 02/07/18 04:24 Respiratory Rate 18 02/07/18 04:24 Blood Pressure 146/77 02/07/18 04:24 O2 Sat by Pulse Oximetry 99 02/07/18 04:24 Temperature 97.9 F 02/07/18 04:24 Pulse Rate 64 02/07/18 05:16 Respiratory Rate 18 02/07/18 05:16 Blood Pressure 109/58 02/07/18 05:16 O2 Sat by Pulse Oximetry 96 02/07/18 05:16 Oxygen Delivery Oxygen Delivery Room Air Chest Pain - MDM Narrative Medical decision making narrative: Patient was suspicious physical exam without a recent stress in the last year. We will admit to medicine for a chest pain rule out. - Lab Data Lab results reviewed: Yes I reviewed the patient's lab results. Result diagrams: 02/07/18 04:31 02/07/18 04:31 Lab Results 02/07/18 02/07/18 02/07/18 Range/Units 04:31 04:31 04:31 WBC 8.4 (4.3-11.1) K/mcL RBC 4.72 (4.19-5.50) M/mcL Hgb 14.8 (12.9-16.9) g/dL Hct 42.9 (37.5-50.1) % MCV 90.9 (83.0-100.0) fL MCH 31.4 (28.0-33.3) pg MCHC 34.5 (31.6-35.5) g/dL RDW 13.6 (11.5-14.5) % Plt Count 211 (140-400) K/mcL MPV 9.7 (9.4-12.4) fL Immature Gran % 0.4 (0-4) % Seg Neutrophils % 46.4 % Lymphocytes % 42.2 % Monocytes % 6.7 % Eosinophils % 4.1 % Basophils % 0.2 % Neutrophils # 3.9 (1.6-8.9) K/mcL Lymphocytes # 3.5 (0.6-4.6) K/mcL Monocytes # 0.6 (0.0-1.3) K/mcL Eosinophils # 0.3 (0.0-0.6) K/mcL Basophils # 0.0 (0.0-0.2) K/mcL PT 11.0 (9.4-12.1) Seconds INR 1.0 APTT 23.7 L (26.0-36.0) Seconds Sodium (136-145) mEq/L Potassium (3.5-5.1) mEq/L Chloride (98-107) mEq/L Carbon Dioxide (23-29) mEq/L BUN (8-23) mg/dL Creatinine (0.70-1.30) mg/dL Est GFR ( Amer) (> 60) Est GFR (Non-Af Amer) (> 60) BUN/Creatinine Ratio (6-26) Glucose (70-105) mg/dL Calculated Osmolality (280-300) Calcium (8.6-10.3) mg/dL Troponin I (< 0.04) ng/mL B-Natriuretic Peptide 111 H (Less than 100) pg/mL 02/07/18 Range/Units 04:31 WBC (4.3-11.1) K/mcL RBC (4.19-5.50) M/mcL Hgb (12.9-16.9) g/dL Hct (37.5-50.1) % MCV (83.0-100.0) fL MCH (28.0-33.3) pg MCHC (31.6-35.5) g/dL RDW (11.5-14.5) % Plt Count (140-400) K/mcL MPV (9.4-12.4) fL Immature Gran % (0-4) % Seg Neutrophils % % Lymphocytes % % Monocytes % % Eosinophils % % Basophils % % Neutrophils # (1.6-8.9) K/mcL Lymphocytes # (0.6-4.6) K/mcL Monocytes # (0.0-1.3) K/mcL Eosinophils # (0.0-0.6) K/mcL Basophils # (0.0-0.2) K/mcL PT (9.4-12.1) Seconds INR APTT (26.0-36.0) Seconds Sodium 141 (136-145) mEq/L Potassium 3.7 (3.5-5.1) mEq/L Chloride 108 H (98-107) mEq/L Carbon Dioxide 24 (23-29) mEq/L BUN 17 (8-23) mg/dL Creatinine 1.11 (0.70-1.30) mg/dL Est GFR ( Amer) > 60 (> 60) Est GFR (Non-Af Amer) > 60 (> 60) BUN/Creatinine Ratio 15 (6-26) Glucose 156 H (70-105) mg/dL Calculated Osmolality 297 (280-300) Calcium 9.0 (8.6-10.3) mg/dL Troponin I < 0.03 (< 0.04) ng/mL B-Natriuretic Peptide (Less than 100) pg/mL - EKG Data EKG results narrative: EKG interpreted by Dr. Mcdonald who notes that the EKG is similar from one year prior. Heart Score - Score History: Highly Suspicious EKG: Normal Age: 45-65 Risk Factors: 1-2 risk factors Critical Care Time Critical Care Time: Yes Total Critical Care Time: 30 Attestation: Critical care time billed for care updating family and patient as well as time consulting with hospitalist and ED attending physicians as well as management monitoring chest pain with nitroglycerin, including nitroglycerin drip.
[2018-02-07] MEDS: Nitroglycerin 0.4 MG TAB.SUBL SL PRN ×3 (04:38→04:51)
[2018-02-07 04:46] LABS: Basophils % 0.2 %; Eosinophils # 0.3 K/mcL (0.0-0.6); Eosinophils % 4.1 %; Hematocrit 42.9 % (37.5-50.1); Hemoglobin 14.8 g/dL (12.9-16.9); Immature Granulocytes % 0.4 % (0-4); Lymphocytes # 3.5 K/mcL (0.6-4.6); Lymphocytes % 42.2 %; Mean Corpuscular HGB Conc 34.5 g/dL (31.6-35.5); Mean Corpuscular Hemoglobin 31.4 pg (28.0-33.3); Mean Corpuscular Volume 90.9 fL (83.0-100.0); Mean Platelet Volume 9.7 fL (9.4-12.4); Monocytes # 0.6 K/mcL (0.0-1.3); Monocytes % 6.7 %; Neutrophils # 3.9 K/mcL (1.6-8.9); Platelet Count 211 K/mcL (140-400); Red Blood Count 4.72 M/mcL (4.19-5.50); Red Cell Distribution Width 13.6 % (11.5-14.5); Segmented Neutrophils % 46.4 %
[2018-02-07 04:57] LABS: Activated Partial Thrombo Time 23.7 Seconds (26.0-36.0)
[2018-02-07] MEDS ORDERED: Nitroglycerin 1 INCH/GM PACKET TP ONE (05:06)
[2018-02-07 05:07] LABS: BUN/Creatinine Ratio 15 (6-26); Blood Urea Nitrogen 17 mg/dL (8-23); Carbon Dioxide 24 mEq/L (23-29); Chloride 108 mEq/L (98-107); Glucose 156 mg/dL (70-105); Osmolality,Calculated 297 (280-300); Potassium 3.7 mEq/L (3.5-5.1); Sodium 141 mEq/L (136-145); eGFR For African Americans > 60 (> 60); eGFR For Non-African Americans > 60 (> 60)
[2018-02-07 05:08] LABS: Troponin I < 0.03 ng/mL (< 0.04)
[2018-02-07] MEDS ORDERED: Nitroglycerin 25 MG/250 ML INFUS..BTL IVC SCH (05:45)
--- NOTE | 2018-02-07 06:41 | Emergency Department Note ---
Disposition Clinical Impression: Chest pain Qualifiers: Chest pain type: unspecified Qualified Code(s): R07.9 - Chest pain, unspecified Disposition: Admitted As Inpatient Condition: Good Instructions: Chest Pain (ED) Referrals: Lydia Slater CNP [Primary Care Provider] - Forms: ED Satisfaction Letter General Adult HPI - General Chief complaint: ED Chest Pain Stated complaint: Chest Pain Time Seen by Provider: 02/07/18 04:23 Source: patient Limitations: no limitations Nursing Notes Reviewed: Yes Vital Signs Reviewed: Yes - History of Present Illness Pain Scale: 6 - Related Data Home Medications Medication Instructions Recorded Confirmed Aspirin [Lo-Dose Aspirin EC] 81 mg PO DAILY 11/15/16 01/13/17 Loratadine [Allergy Relief] 10 mg PO DAILY 11/15/16 01/13/17 Metoprolol XL (24 HR) Succ [Toprol 50 mg PO DAILY 11/15/16 01/13/17 Xl] Nitroglycerin [Nitrostat] 0.4 mg SL AD PRN 11/15/16 01/13/17 amLODIPine [Norvasc] 5 mg PO DAILY 11/15/16 01/13/17 Albuterol Sulfate [Proair Hfa] 2 puff IH Q4-6H PRN 01/13/17 01/13/17 Atorvastatin Calcium [Lipitor] 80 mg PO DAILY 01/13/17 01/13/17 Previous Rx's Medication Instructions Recorded Tamsulosin HCl [Flomax] 0.4 mg PO DAILY #14 cap.er.24h 11/05/16 Omeprazole [PriLOSEC] 20 mg PO BIDAC #60 cap 11/18/16 Hifbhruuxtap-Dgiv-Juufksjt,Iso 3.375 gm IV Q8H 5 Days froz.piggy 01/16/17 [Zosyn 3.375 gm/50 ml Galaxy] Piperacillin/Tazobactam [Zosyn] 3.375 gm IVPB Q8HR 5 Days vial 01/16/17 Acetaminophen [Tylenol] 650 mg PO Q6HR PRN #0 tablet 01/17/17 Allergies Allergy/AdvReac Type Severity Reaction Status Date / Time No Known Allergies Allergy Verified 02/07/18 04:21 Constitutional: Reports: as per HPI Eyes: Reports: as per HPI ENT ED: Reports: as per HPI Cardiovascular: Reports: as per HPI, chest pain. Denies: palpitations, orthopnea Respiratory: Reports: as per HPI Gastrointestinal: Reports: as per HPI Genitourinary: Reports: as per HPI Past Medical History - Past Medical History Medical history: Reports: hypertension, myocardial infarction Surgical history: Reports: angioplasty/stent Psychiatric history: Reports: no psych history - Social History Smoking Status: Never smoker Smokeless Tobacco Status: No Alcohol use: Reports: none Drug use: Reports: none Physical Exam - General Limitations: no limitations General appearance: alert, in no apparent distress Course Vital Signs Temperature 97.9 F 02/07/18 04:24 Pulse Rate 71 02/07/18 04:24 Respiratory Rate 18 02/07/18 04:24 Blood Pressure 146/77 02/07/18 04:24 O2 Sat by Pulse Oximetry 99 02/07/18 04:24 Temperature 97.9 F 02/07/18 04:24 Pulse Rate 66 02/07/18 05:59 Respiratory Rate 18 02/07/18 05:59 Blood Pressure 119/69 02/07/18 05:59 O2 Sat by Pulse Oximetry 97 02/07/18 05:59 Oxygen Delivery Oxygen Delivery Room Air Medical Decision Making - Lab Data Result diagrams: 02/07/18 04:31 02/07/18 04:31 Lab Results 02/07/18 02/07/18 02/07/18 Range/Units 04:31 04:31 04:31 WBC 8.4 (4.3-11.1) K/mcL RBC 4.72 (4.19-5.50) M/mcL Hgb 14.8 (12.9-16.9) g/dL Hct 42.9 (37.5-50.1) % MCV 90.9 (83.0-100.0) fL MCH 31.4 (28.0-33.3) pg MCHC 34.5 (31.6-35.5) g/dL RDW 13.6 (11.5-14.5) % Plt Count 211 (140-400) K/mcL MPV 9.7 (9.4-12.4) fL Immature Gran % 0.4 (0-4) % Seg Neutrophils % 46.4 % Lymphocytes % 42.2 % Monocytes % 6.7 % Eosinophils % 4.1 % Basophils % 0.2 % Neutrophils # 3.9 (1.6-8.9) K/mcL Lymphocytes # 3.5 (0.6-4.6) K/mcL Monocytes # 0.6 (0.0-1.3) K/mcL Eosinophils # 0.3 (0.0-0.6) K/mcL Basophils # 0.0 (0.0-0.2) K/mcL PT 11.0 (9.4-12.1) Seconds INR 1.0 APTT 23.7 L (26.0-36.0) Seconds Sodium (136-145) mEq/L Potassium (3.5-5.1) mEq/L Chloride (98-107) mEq/L Carbon Dioxide (23-29) mEq/L BUN (8-23) mg/dL Creatinine (0.70-1.30) mg/dL Est GFR ( Amer) (> 60) Est GFR (Non-Af Amer) (> 60) BUN/Creatinine Ratio (6-26) Glucose (70-105) mg/dL Calculated Osmolality (280-300) Calcium (8.6-10.3) mg/dL Troponin I (< 0.04) ng/mL B-Natriuretic Peptide 111 H (Less than 100) pg/mL 02/07/18 Range/Units 04:31 WBC (4.3-11.1) K/mcL RBC (4.19-5.50) M/mcL Hgb (12.9-16.9) g/dL Hct (37.5-50.1) % MCV (83.0-100.0) fL MCH (28.0-33.3) pg MCHC (31.6-35.5) g/dL RDW (11.5-14.5) % Plt Count (140-400) K/mcL MPV (9.4-12.4) fL Immature Gran % (0-4) % Seg Neutrophils % % Lymphocytes % % Monocytes % % Eosinophils % % Basophils % % Neutrophils # (1.6-8.9) K/mcL Lymphocytes # (0.6-4.6) K/mcL Monocytes # (0.0-1.3) K/mcL Eosinophils # (0.0-0.6) K/mcL Basophils # (0.0-0.2) K/mcL PT (9.4-12.1) Seconds INR APTT (26.0-36.0) Seconds Sodium 141 (136-145) mEq/L Potassium 3.7 (3.5-5.1) mEq/L Chloride 108 H (98-107) mEq/L Carbon Dioxide 24 (23-29) mEq/L BUN 17 (8-23) mg/dL Creatinine 1.11 (0.70-1.30) mg/dL Est GFR ( Amer) > 60 (> 60) Est GFR (Non-Af Amer) > 60 (> 60) BUN/Creatinine Ratio 15 (6-26) Glucose 156 H (70-105) mg/dL Calculated Osmolality 297 (280-300) Calcium 9.0 (8.6-10.3) mg/dL Troponin I < 0.03 (< 0.04) ng/mL B-Natriuretic Peptide (Less than 100) pg/mL Critical Care Time Critical Care Time: Yes Total Critical Care Time: 35 Attestation: Critical care performed: Time is exclusive of separately billable procedures. Time includes: direct patient care, patient reassessment, coordination of patient care, interpretation of data (laboratory data, radiology data, and respiratory data), review of patient's medical records, medical consultation and documentation of patient care. Procedures included in critical care time: Procedures excluded from critical care time: Attestation Statement - Attestation Attestation: I, Ariel Mcdonald MD, personally evaluated this patient and discussed their management with the midlevel provicer, PAC/ORE GRADER. I reviewed the midlevel provider 's note and agree with the documented findings, medical decision making, and plan of care. 67-year-old male presents to the emergency department with a complaint of substernal chest pain which awoke him from sleep about 3 AM. He did have some mild shortness of breath and diaphoresis with the pain. No radiation of the pain. No nausea or vomiting. He describes the pain as a heaviness or pressure in the chest and rated the pain a 6 out of 10. Patient does have a history of coronary artery disease and had a coronary artery stent placed about 6 years ago. On examination patient is a well-developed well-nourished well-appearing elderly male in no acute distress. He is alert and oriented 3. There is no cyanosis or diaphoresis. Chest is nontender to palpation. Breath sounds are clear and equal bilaterally. Heart regular rate and rhythm. Abdomen soft and nontender with normal bowel sounds. Labs reviewed. Troponin normal. Chest x-ray negative. EKG shows a sinus rhythm with ventricular rate of 69. Old inferior ND. No acute ST segment elevation or depression. No significant change from EKG dated 01/13/2017. No relief with sublingual nitroglycerin 3 and nitro paste. Patient was placed on nitroglycerin drip. The hospitalist, Dr. Sue, was consulted and accepted admission of the patient.
[2018-02-07] MEDS ORDERED: Naloxone 0.4 MG/ML INJ IVP PRN (07:19)
[2018-02-07] MEDS ORDERED: Nitroglycerin 0.4 MG TAB.SUBL SL PRN (07:21)
[2018-02-07] MEDS ORDERED: Acetaminophen 325 MG TABLET PO PRN (07:21)
[2018-02-07] MEDS: Aspirin Enteric Coated 81 MG Tablet PO SCH (08:01)
[2018-02-07] MEDS: Metoprolol XL (24 HR) Succ 50 MG TAB.ER.24H PO SCH (08:01)
[2018-02-07] MEDS: amLODIPine 5 MG TABLET PO SCH (08:01)
[2018-02-07] MEDS: *HR* Morphine 2 MG/ML SYRINGE IVP PRN ×2 (08:01→14:52)
[2018-02-07] MEDS: Loratadine 10 MG TABLET PO SCH (08:01)
--- NOTE | 2018-02-07 08:30 | Internal Med History&Physical ---
Date of Encounter: 02/07/18 Time of Encounter: 07:00 Internal Medicine - H&P: HPI Chief complaint: Chest pain that woke him up from sleep History of present illness: Mr. Skinner is a 67 year old male with pmh of CAD s/p stent about 7 years ago, hypertension complaing of chest pain that woke him up from sleep about 3 am this morning. Patient says he woke up with substernal pressure like chest pain that was 6/10 , constant and made him come to the ER. 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 Denies any fevers or chills. He was given nitropatch for his chest pain, but with no relief he was started on a nitroglycerin drip Past Med Surg Social Fam HX - Past Medical History Medical history: hypertension, myocardial infarction Additional medical history: chronic back pain Psychiatric history: no psych history - Past Surgical History Surgical History: angioplasty/stent - Social History Smoking Status: Never smoker Smokeless Tobacco Status: No Alcohol use: none Drug use: none - Family History Mother Living Status: Hx Family Cardiac Disorders: Yes (hypertension, heart bypass surgery) Hx Family Respiratory Disorders: No Hx Family Cancer: No Hx Family GI Disorders: No Hx Family Endocrine Disorder: No Hx Family Neuromuscular Disorders: No Hx Family Neurologic Disorders: No Hx Family HEENT Disorders: No Hx Family Autoimmune Disorders: No Father Living Status: Hx Family Cardiac Disorders: No Hx Family Respiratory Disorders: No Hx Family Cancer: No Hx Family GI Disorders: No Hx Family Endocrine Disorder: No Hx Family Neuromuscular Disorders: Yes Hx Family Neurologic Disorders: No Hx Family HEENT Disorders: No Hx Family Autoimmune Disorders: No Internal Medicine - H&P: Meds Tamsulosin HCl [Flomax] 0.4 mg PO DAILY #14 cap.er.24h 11/05/16 [Rx] Aspirin [Lo-Dose Aspirin EC] 81 mg PO DAILY 11/15/16 [History] Loratadine [Allergy Relief] 10 mg PO DAILY 11/15/16 [History] Metoprolol XL (24 HR) Succ [Toprol Xl] 50 mg PO DAILY 11/15/16 [History] Nitroglycerin [Nitrostat] 0.4 mg SL AD PRN 11/15/16 [History] amLODIPine [Norvasc] 5 mg PO DAILY 11/15/16 [History] Omeprazole [PriLOSEC] 20 mg PO BIDAC #60 cap 11/18/16 [Rx] Atorvastatin Calcium [Lipitor] 80 mg PO DAILY 01/13/17 [History] 3 Allergy/AdvReac Type Severity Reaction Status Date / Time No Known Allergies Allergy Verified 02/07/18 04:21 All Systems PM: A 10-system review of systems was performed and is negative for pertinent findings except as documented above in the HPI. - Constitutional Constitutional: as per HPI - EENT Eyes: no change in vision, no discharge, no pain, no photophobia Ears: no ear discharge, no ear pain, no tinnitus Nose, mouth and throat: no dysphagia, no nasal discharge, no neck pain, no sore throat - Cardiovascular Cardiovascular ROS IM: chest pain, no diaphoresis, no dyspnea, no lightheadedness, no palpitations, no syncope - Respiratory Respiratory: no cough, no dyspnea, no wheezing, no excessive phlegm production - Gastrointestinal Gastrointestinal: no abdominal pain, no diarrhea, no hematemesis, no hematochezia, no melena, no nausea, no vomiting - Musculoskeletal Musculoskeletal ROS IM: no numbness, no tingling - Integumentary Integumentary IM: no rash, no unusual bruising - Neurological Neurological ROS: no confusion, no convulsions, no focal weakness, no numbness, no tingling, no tremor(s) - Hematologic/Lymphatic Hematologic/Lymphatic: no easy bruising - Constitutional Vitals: Temp Pulse Resp BP Pulse Ox 97.7 F 60 16 122/67 97 02/07/18 07:52 02/07/18 07:58 02/07/18 07:52 02/07/18 07:52 02/07/18 07:58 - Head Head exam: Present: atraumatic, normocephalic - Eye Eye exam: Present: PERRL, conjuntiva pink, sclera anicteric Pupils: Present: PERRL - Neck Neck exam general surgery: Present: supple, trachea midline. Absent: lymphadenopathy - Respiratory Respiratory exam: Present: CTAB. Absent: accessory muscle use, rales, rhonchi, wheezes - Cardiovascular Cardiovascular exam: Present: RRR, +S1, +S2. Absent: diastolic murmur, gallop, rubs, systolic murmur - GI/Abdominal GI/Abdominal exam: Present: normal bowel sounds, soft, no peritoneal signs. Absent: distended, tenderness - Extremities Exam Extremities exam: Present: warm, radial pulses palpable and symmetrical. Absent : calf tenderness, cyanotic, pedal edema - Neurological Exam Neurological exam: Present: CN II-XII intact, oriented X3, no focal deficits. Absent: pronater drift, facial droop, speech deficit - Skin Skin exam: Present: dry, intact Internal Med - H&P Results - Labs CBC & Chem 7: 02/07/18 04:31 02/07/18 04:31 Labs: Cardiac Enzymes 02/07/18 Range/Units 07:42 Troponin I < 0.03 (< 0.04) ng/mL - Assessment and plan (1) Chest pain Current Visit: Yes Status: Acute Assessment and plan: Chest pain r/o HI. Patient has typical chest pain and risk factors for CAD. Continue aspirin and beta blockers. Obtain 2D echo and nuclear stress test Qualifiers: Chest pain type: unspecified Qualified Code(s): R07.9 - Chest pain, unspecified (2) CAD (coronary artery disease) Current Visit: No Status: Chronic Assessment and plan: Continue aspirin and beta blockers Qualifiers: Coronary Disease-Associated Artery/Lesion type: [place] artery [place] vs. transplanted heart: [place] heart Associated angina: without angina Qualified Code(s): I25.10 - Atherosclerotic heart disease of [place] coronary artery without angina pectoris (3) Dyslipidemia Current Visit: Yes Status: Acute Assessment and plan: Continue lipitor (4) Hypertension Current Visit: No Status: Chronic Assessment and plan: continue amlodipine Qualifiers: Hypertension type: essential hypertension Qualified Code(s): I10 - Essential (primary) hypertension (5) DVT prophylaxis Current Visit: No Status: Acute Assessment and plan: Heparin sc - Time Spent With Patient Total time spent is greater than 50% in coordination of care (as documented) at patient's floor/unit and/or counseling patient:
[2018-02-07] MEDS: *HR* Heparin 5,000 UNIT/ML VIAL SQ SCH (17:31)
[2018-02-08 06:15] LABS: Basophils % 0.3 %; Eosinophils # 0.3 K/mcL (0.0-0.6); Eosinophils % 4.6 %; Hematocrit 42.3 % (37.5-50.1); Hemoglobin 14.6 g/dL (12.9-16.9); Immature Granulocytes % 0.1 % (0-4); Lymphocytes # 1.6 K/mcL (0.6-4.6); Lymphocytes % 23.1 %; Mean Corpuscular HGB Conc 34.5 g/dL (31.6-35.5); Mean Corpuscular Hemoglobin 31.4 pg (28.0-33.3); Mean Platelet Volume 9.7 fL (9.4-12.4); Monocytes # 0.6 K/mcL (0.0-1.3); Neutrophils # 4.3 K/mcL (1.6-8.9); Platelet Count 192 K/mcL (140-400); Red Blood Count 4.65 M/mcL (4.19-5.50); Red Cell Distribution Width 13.7 % (11.5-14.5); Segmented Neutrophils % 62.9 %
[2018-02-08 06:33] LABS: BUN/Creatinine Ratio 11 (6-26); Blood Urea Nitrogen 10 mg/dL (8-23); Calcium 8.7 mg/dL (8.6-10.3); Carbon Dioxide 25 mEq/L (23-29); Chloride 111 mEq/L (98-107); Glucose 114 mg/dL (70-105); Magnesium 1.9 mg/dL (1.6-2.6); Osmolality,Calculated 290 (280-300); Phosphorous 3.1 mg/dL (2.7-4.5); Potassium 4.2 mEq/L (3.5-5.1); Sodium 140 mEq/L (136-145); eGFR For African Americans > 60 (> 60); eGFR For Non-African Americans > 60 (> 60)
[2018-02-08] MEDS: *HR* Heparin 5,000 UNIT/ML VIAL SQ SCH (06:45)
[2018-02-08] MEDS: amLODIPine 5 MG TABLET PO SCH (10:22)
[2018-02-08] MEDS: Loratadine 10 MG TABLET PO SCH (10:22)
[2018-02-08] MEDS: Metoprolol XL (24 HR) Succ 50 MG TAB.ER.24H PO SCH (10:22)
[2018-02-08] MEDS: Aspirin Enteric Coated 81 MG Tablet PO SCH (10:22)
[2018-02-08 12:15] VITALS: BP 132/84
--- NOTE | 2018-02-08 12:31 | Discharge Summary ---
- NOTES TO OUTPATIENT PROVIDER Notes to Outpatient Provider: Please follow up with cardiology/pmd. ECHO with dilated left atrium otherwise no acute significant findings. Orders not resulted at time of discharge: Pending orders 02/07/18 05:53 NM richard perf SPECT multi [NM] Routine Date of Encounter: 02/08/18 Time of Encounter: 11:00 - Discharge Diagnosis (1) Chest pain Priority: Primary Status: Acute Assessment and Plan: Chest pain after working in the yard for 6 hours yesterday, not relieved by nitroglycerin. Given history of CAD, stress and ECHo was performed. Troponin negative x3. Stress test showed no evidence of ischemia. ECHO normal EF. dilated atrium? Should follow up with payable manager as outpatient. Chest pain completely resolved at this time. Qualifiers: Chest pain type: unspecified Qualified Code(s): R07.9 - Chest pain, unspecified (2) CAD (coronary artery disease) Priority: Secondary Status: Chronic Assessment and Plan: history of PCI with one stent placement C/w home medications Qualifiers: Coronary Disease-Associated Artery/Lesion type: [place] artery [place] vs. transplanted heart: [place] heart Associated angina: without angina Qualified Code(s): I25.10 - Atherosclerotic heart disease of [place] coronary artery without angina pectoris (3) Hypertension Priority: Secondary Status: Chronic Assessment and Plan: continue Norvasc BP controlled Qualifiers: Hypertension type: essential hypertension Qualified Code(s): I10 - Essential (primary) hypertension Hospital course: Mr. Skinner is a 67 year old male with PMH CAD presented to the ED with complaints of chest pain after working in the yard for 6 hours. Patient was admitted to r/o ACS given history of CAD. Troponin was negative x 3 with no signfiicant findings on ECHO and nuclear stress test. Pain completely resolved and patient had no more discomfort. Discharge discussed with: patient, family, nurse - Time Spent with Patient Total time spent providing and/or coordinating discharge services: Greater than 30 minutes - Discharge Medications Home Medications: Tamsulosin HCl [Flomax] 0.4 mg PO DAILY #14 cap.er.24h 11/05/16 [Rx] Aspirin [Lo-Dose Aspirin EC] 81 mg PO DAILY 11/15/16 [History] Loratadine [Allergy Relief] 10 mg PO DAILY 04/11/17 [History] Metoprolol XL (24 HR) Succ [Toprol Xl] 50 mg PO DAILY 11/15/16 [History] Nitroglycerin [Nitrostat] 0.4 mg SL AD PRN 11/15/16 [History] amLODIPine [Norvasc] 5 mg PO DAILY 11/15/16 [History] Omeprazole [PriLOSEC] 20 mg PO BIDAC #60 cap 11/18/16 [Rx] Atorvastatin Calcium [Lipitor] 80 mg PO DAILY 01/13/17 [History] Allergies/Adverse Reactions: 3 Allergy/AdvReac Type Severity Reaction Status Date / Time No Known Allergies Allergy Verified 02/07/18 04:21 Date of admission: 02/07/18 06:52 Primary care physician: Lydia Slater CNP - Constitutional Vitals: Temp Pulse Resp BP Pulse Ox 97.5 F L 76 18 132/84 95 02/08/18 12:11 02/08/18 12:11 02/08/18 12:11 02/08/18 12:11 02/08/18 12:11 Exam: General: Alert and oriented Skin: Normal color, no rash, no lesions. HEENT: EOMI, pupils equal, round and reactive. Cardiovascular: Regular rate, regular rhythm. No murmurs appreciated. Lungs:Normal breath sounds, no wheezes or crackles. Abdomen:Soft, non-tender, no rigidity. Extremities:No deformity, no edema or tenderness, no joint swelling or clubbing. Neurological:Normal cognition, no weakness, no numbness. Rest of the physical exam is non contributory - Patient Status Disposition: Home, Self-Care Condition: Good Overall status at discharge: patient is back to baseline - Discharge Instructions Follow Up With: Fidel Nuñez MD [Non-Partnered Physician] - 02/13/18 1:20 pm (Please follow as schedule...) Yang Ruby MD [Partnered Physician] - 02/20/18 2:30 pm (Please follow up with Elias Ignacio) - Diet and Activity Activity: resume usual activities as tolerated Diet: advance to your usual diet
--- NOTE | 2018-02-09 09:43 | Electrocardiograph Report ---
[address] [place], [place] [address] Test Date: 2018-02-07 Pat Name: Glenn Skinner Department: 104 Room: 2A34 Gender: M Recreation Aide: : 1950 Requested By: Rose Mary Samuels Order Number: [id number] Reading MD: Yang Ruby Measurements Intervals [place] Rate: 69 P: 35 MN: 170 QRS: -13 QRSD: 111 T: 1 QT: 434 QTc: 454 Interpretive Statements SINUS RHYTHM INFERIOR MYOCARDIAL INFARCTION, PROBABLY OLD Electronically Signed On 02-09-2018 9:41:34 EDT by Yang Ruby
== END 2018-02-08 14:07 | disposition home or self-care (01) ==
LOC: 2ANU 04:20 → EMEROO 04:20 → SUATTDRO 06:52 → 2ANU 07:32
PROVIDERS: ADMIT Internal Medicine; ATTEND Student in an Organized Health Care Education/Training Program